=== PATIENT | male | born 1980 | race Caucasian/White ===

== ENCOUNTER → 2019-05-06 | Outpatient (REF) | payer OTHER, MEDICAID ==
[2019-05-06 19:31] LABS: BASO # 0.1 10^3/uL (0.0-0.2); BASO % 0.9 % (0.0-1.0); EOS # 0.2 10^3/uL (0.0-0.5); EOS % 3.5 % (0.0-3.0); HEMATOCRIT 48.7 % (42.0-52.0); HEMOGLOBIN 15.2 g/dl (13.5-17.5); LYMPH % 17.5 % (24.0-44.0); MEAN CORPUSCULAR HEMOGLOBIN 28.7 pg (27.0-33.0); MEAN CORPUSCULAR HGB CONC 31.2 g/dl (32.0-36.5); MEAN CORPUSCULAR VOLUME 91.9 fl (80.0-96.0); MONO # 0.4 10^3/uL (0.0-0.8); NEUTROPHILS # 3.8 10^3/uL (1.5-8.5); NEUTROPHILS % 69.7 % (36.0-66.0); PLATELET COUNT, AUTOMATED 358 10^3/uL (150-450); WHITE BLOOD COUNT 5.5 10^3/uL (4.0-10.0)
[2019-05-06 19:53] LABS: HEMOGLOBIN A1c 7.1 %
[2019-05-06 19:54] LABS: ALBUMIN 3.8 GM/DL (3.2-5.2); ALT/SGPT 40 U/L (12-78); BILIRUBIN,TOTAL 0.3 MG/DL (0.2-1.0); BLOOD UREA NITROGEN 15 MG/DL (7-18); CARBON DIOXIDE LEVEL 30 MEQ/L (21-32); CHLORIDE LEVEL 109 MEQ/L (98-107); CHOLESTEROL LEVEL 184 MG/DL (<200); CHOLESTEROL RISK RATIO 3.016 (<5); COMPLEMENT C3 162 MG/DL (90-180); COMPLEMENT C4 40 MG/DL (10-40); CREATININE FOR GFR 1.25 MG/DL (0.70-1.30); FREE T4 0.95 NG/DL (0.76-1.46); GLOMERULAR FILTRATION RATE > 60.0 (>60); GLUCOSE, FASTING 90 MG/DL (70-100); HDL CHOLESTEROL 61 MG/DL (>40); LDL CHOLESTEROL 64 MG/DL (<100); NON-HDL-C 123 MG/DL; RHEUMATOID FACTOR QUANT < 10.0 IU/ML (<15.0); SODIUM LEVEL 141 MEQ/L (136-145); TOTAL PROTEIN 7.6 GM/DL (6.4-8.2); TRIGLYCERIDES LEVEL 296 MG/DL (<150); URIC ACID 4.4 MG/DL (3.5-7.2)
[2019-05-06 19:55] LABS: TOTAL 25(OH) VITAMIN D 13.4 NG/ML (30.0-100.0)
[2019-05-06 20:16] LABS: ERYTHROCYTE SEDIMENTATION RATE 6 mm/hr (0-15)
== END ==
LOC: M LAB REF 18:09
PROVIDERS: ATTEND Family Medicine
DX: Z13.228 Encounter for screening for other metabolic disorders (principal); M45.7 Ankylosing spondylitis of lumbosacral region; E10.65 Type 1 diabetes mellitus with hyperglycemia

== ENCOUNTER → 2019-06-12 | Outpatient (CLI) | payer OTHER, MEDICAID | LOC: M LAB 12:52 | PROVIDERS: ATTEND Physician Assistant Medical | DX: R19.7 Diarrhea, unspecified (principal) ==

== ENCOUNTER → 2019-06-13 | Outpatient (CLI) | payer OTHER ==
--- NOTE | 2019-06-28 03:14 | ECWPNPC ---
PATIENT NAME: TERESA JEAN : 1980 GENDER: MALE VISIT DATE: 06/13/2019 DISCHARGE DATE: 06/13/19 1219 VISIT LOCKED DATE TIME: PHYSICIAN: LYUBOV TITUS RESOURCE: LYUBOV TITUS REASON FOR APPOINTMENT 1. BACK PAIN HISTORY OF PRESENT ILLNESS PAIN SCREENIN39 Y/O MALE REFERRED BY ,MARAL VELEZ,[facility] FOR CHRONIC LOW BACK PAIN WITH HISTORY OF ANKYLOSING SPONDYLOSIS OF LUMBOSACRAL REGION.RATING PAIN VAS 10/10.HAS WORKED WITH RHEUMATOLOGY AND TRIED MULTIPLE MEDICATIONS WITH EITHER NO IMPROVEMENT OR SIDE EFFECTS.GENERALLY HURTS ALL OVER. PATIENT HAS A COMPLAINT OF ACUTE OR CHRONIC PAIN :YES FALL RISK SCREENING: SCREENING :NO FALLS REPORTED IN THE LAST YEAR CURRENT MEDICATIONS TAKING ASPIRIN ADULT LOW STRENGTH 81 MG TABLET DELAYED RELEASE 1 TABLET ORALLY ONCE A DAY TAKING OMEPRAZOLE 40 MG CAPSULE DELAYED RELEASE 1 CAPSULE 30 MINUTES BEFORE MORNING MEAL ORALLY ONCE A DAY TAKING ATORVASTATIN CALCIUM 20 MG TABLET 1 TABLET ORALLY ONCE A DAY TAKING LISINOPRIL 10 MG TABLET 1 TABLET ORALLY ONCE A DAY TAKING ADMELOG 100 UNIT/ML SOLUTION DIRECTED SUBCUTANEOUS , NOTES: INSULIN PUMP TAKING ESCITALOPRAM OXALATE 5 MG TABLET 1 TABLET ORALLY ONCE A DAY NOT-TAKING BUPROPION HCL ER (SR) 100 MG TABLET EXTENDED RELEASE 12 HOUR 1 TABLET IN THE MORNING ORALLY ONCE A DAY NOT-TAKING AMITRIPTYLINE HCL 25 MG TABLET 1 TABLET AT BEDTIME ORALLY ONCE A DAY NOT-TAKING LANTUS SOLOSTAR 100 UNIT/ML SOLUTION PEN-INJECTOR DIRECTED SUBCUTANEOUS NOT-TAKING HUMALOG 100 UNIT/ML SOLUTION DIRECTED SUBCUTANEOUS NOT-TAKING NOVOLOG FLEXPEN 100 UNIT/ML SOLUTION PEN-INJECTOR DIRECTED SUBCUTANEOUS , NOTES: HAS BACKUP IF PUMP FAILS MEDICATION LIST REVIEWED AND RECONCILED WITH THE PATIENT PAST MEDICAL HISTORY ANXIETY DEPRESSION DIABETES HYPERTENSION HIGH CHOLESTEROL VERTIGO HEARING LOSS DEGENERATIVE DISC DISEASE ANKYLOSING SPONDYLITIS OF LUMBOSACRAL REGION MEMORY LOSS SEIZURES CHILD BIPOLAR ALLERGIES DILANTIN: UNKNOWN SURGICAL HISTORY RIGHT FOOT 1999' FAMILY HISTORY FATHER: ALIVE, DIAGNOSED WITH DIABETES, HYPERTENSION MOTHER: ALIVE, HYPERTENSION 1 SISTER(S) - HEALTHY. 2 SON(S) - HEALTHY. SOCIAL HISTORY GENERAL: TOBACCO USE ARE YOU A:CURRENT SMOKER ARE YOU INTERESTED IN QUITTING?NOT READY TO QUIT QUIT X 3 MONTHS, NOW SMOKING AGAIN HOW MANY CIGARETTES A DAY DO YOU SMOKE?6-10 HOW OFTEN DO YOU SMOKE CIGARETTES?EVERY DAY PATIENT COUNSELED ON THE DANGERS OF TOBACCO USE AND URGED TO QUIT:06/11/2019 VAPORYES DIET: NO CONCENTRATED SWEETS.. LANGUAGE LANGUAGES SPOKEN:CITIZEN OF [place] AND BARBU[place] DOMESTIC VIOLENCE DO YOU FEEL SAFE IN YOUR ENVIRONMENT?YES RECREATIONAL DRUG USE DRUG USE?NO LEARNING BARRIERS / SPECIAL NEEDS CHANGE FROM LAST VISIT?NO BARRIERS TO LEARNING?NO HEARING IMPAIRED?YES PT REPORTS HE WILL BE MAKING AN APPOINTMENT TO GET HEARING AIDES, HAS NONE AT PRESENT VISION IMPAIRED?YES GLASSES COGNITIVELY IMPAIRED?YES PT REPORTS MEMORY LOSS READINESS TO LEARN?YES LEARNING PREFERENCES?YES PREFERS WRITTEN MATERIALS R/T MEMORY LOSS :HANDOUTS LEARNING CAPABILITIES PRESENT?YES EMOTIONAL BARRIERS?NO SPECIAL DEVICES?NO WIND SCIENCE AND PLANNING NEEDED?NO PAIN CLINIC PFS, CLERGY, PUBLIC HEALTH REFERRALS HAS THE PATIENT BEEN EDUCATED REGARDING HIS/HER PLAN OF CARE?YES HAS THE PATIENT BEEN EDUCATED REGARDING PAIN, THE RISK FOR PAIN, THE IMPORTANCE OF EFFECTIVE PAIN MANAGEMENT, AND THE PAIN ASSESSMENT PROCESS?YES LATEX QUESTIONNAIRE LATEX ALLERGY : HAVE YOU EVER DEVELOPED ANY TYPE OF REACTION AFTER HANDLING LATEX PRODUCTS SUCH RUBBER GLOVES, CONDOMS, DIAPHRAGMS, BALLOONS, SOCKS, OR UNDERWEAR?NO LATEX ALLERGY : HAVE YOU EVER DEVELOPED ANY TYPE OF REACTION DURING OR AFTER DENTAL APPOINTMENT, VAGINAL/RECTAL EXAMINATION, SURGICAL PROCEDURE, OR ANY OTHER EXPOSURE?NO LATEX RISK : HAVE YOU EVER HAD ANY DIFFICULTY BREATHING OR HIVES AFTER EATING OR HANDLING ANY FRUITS, OR VEGETABLES; SUCH KIWI, BANANAS, STONE FRUITS, OR CHESTNUTSNO LATEX RISK : DO YOU HAVE A PREVIOUS PERSONAL HISTORY OF MORE THAN NINE SURGERIES, SPINA BIFIDA, OR REPEATED CATHERIZATIONS? 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 NEW PATIENT CONSULT SCREENING 06/11/19 LASREVIEWED WITH PT 06/13/19 1105 BV. HOSPITALIZATION/MAJOR DIAGNOSTIC PROCEDURE DIABETES REVIEW OF SYSTEMS REVIEWED BY: PROVIDER: LYUBOV RAMIREZ . CONSTITUTIONAL: ANY CHANGE IN YOUR MEDICAL CONDITION? NO . CHILLS NO . FEVER NO . INFECTION: DO YOU HAVE NEW INFECTIONS? NO . DO YOU HAVE HISTORY OF MRSA? NO . MUSCULOSKELETAL: ANY NEW PATTERNS OF PAIN OR NUMBNESS? NO . SYTEMIC LUPUS NO . GASTROENTEROLOGY: ANY NEW CHANGE IN BOWEL CONTROL? NO . BARRETTS ESOPHAGUS NO . CIRRHOSIS NO . HEPATITIS NO . LIVER FAILURE NO . ACID REFLUX NO . UNEXPLAINED WEIGHT LOSS NO . GENITOURINARY: ANY NEW CHANGE IN BLADDER CONTROL? NO . IS THERE A CHANCE YOU COULD BE ? NO . HEMATOLOGY/LYMPH: DO YOU TAKE ANY BLOOD THINNERS? (FOR EXAMPLE- COUMADIN, PLAVIX, AGGRENOX, PLATEL, PRADAXA, OR XARELTO) NO . WHEN WAS YOUR LAST DOSE? DATE: TIME: . LOW PLATELET COUNT NO . SICKLE CELL DISEASE NO . VON WILLIEBRANDS NO . FACTOR V LEIDEN NO . THALLASEMIA NO . ANEMIA NO . EASY BRUISING NO . NEUROLOGY: HAVE YOU FALLEN IN THE PAST 12 MONTHS? YES, PT STATES HE HAD A FEW FALLS IN THE PAST YEAR, DUE TO LOSS OF BALANCE. DENIES ANY INJURIES OR ED VISIT DUE TO ANY FALL. . ANY NEW EXTREMITY NUMBNESS OR WEAKNESS? NO . HEAD INJURY NO . DEMENTIA NO . CEREBRAL PALSY NO . MULTIPLE SCLEROSIS NO . DIZZINESS NO . HEADACHE NO . STROKES NO . VERTIGO NO . CARDIOLOGY: DO YOU HAVE A PACEMAKER OR DEFIBRILLATOR? NO . ANGINA NO . HEART ATTACK NO . HEART SURGERY NO . CONGESTIVE HEART FAILURE/FLUID OVERLOAD NO . CHEST PAIN NO . HIGH BLOOD PRESSURE ON MEDICATION(S) . IRREGULAR HEART BEAT NO . RESPIRATORY: HAVE YOU BEEN SICK IN THE PAST WEEK? NO . FEVER NO . FLU LIKE SYMPTOMS? NO . CPAP NO . BYPAP NO . ASTHMA NO . EMPHYSEMA NO . CHRONIC LUNG DISEASES NO . SHORTNESS OF BREATH ON EXERTION NO . COUGH NO . SNORING NO . INTEGUMENTARY: DO YOU HAVE ANY RASHES OR OPEN SORES? NO . ALLERGIC/IMMUNO: ARE YOU ALLERGIC TO IV DYE? NO . ANY NEW ALLERGIES? NO . PSYCHIATRIC: DO YOU HAVE THOUGHTS OF HURTING YOURSELF OR SOMEONE ELSE? NO . ARE YOU ABUSED, NEGLECTED, OR IN AN UNSAFE ENVIRONMENT? NO . ENDOCRINOLOGY: ARE YOU DIABETIC? YES, PT HAS INSULIN PUMP . THYROID DISORDER NO . OTHER: DO YOU NEED ANY PRESCRIPTIONS? NO . IF YES, PLEASE LIST: ____ . ANY NEW PROBLEMS WITH YOUR MEDICATIONS? NO . WHEN DID YOU LAST EAT? ____ . WHEN DID YOU LAST DRINK? ____ . WHAT DID YOU LAST DRINK? ____ . NAME OF PERSON DRIVING YOU HOME? ____ . DO YOU HAVE ANY OTHER QUESTIONS OR CONCERNS NO . VITAL SIGNS WT 285.6 LBS, HT 63 IN, BMI 50.59 INDEX, BP 167/97 MM HG, HR 69 /MIN, RR 18 /MIN, TEMP 96.4 F, OXYGEN SAT % 99%, NA INITIALS AW 1053, REVIEWED BY: BV. EXAMINATION GENERAL EXAMINATION: GENERAL AWAKE,ALERT ,PLEASANT . PSYCH AFFECT NORMAL . LUNGS: LUNG ARCOS ARE CLEAR TO AUSCULTATION BILATERALLY. GOOD MOVEMENT OF AIR . HEART: S1, S2 IN A REGULAR RATE AND RHYTHM. NO SIGNIFICANT MURMURS, RUBS OR GALLOPS NOTED . FOR BILAT. SIJ PALPATION:TENDER OVER BILAT. L4/5-L5/S1 LUMBAR FACETS WITH FACET LOADING.. DIAGNOSTIC TESTS REVIEWED MRI L/S SPINE-12/19/18. ASSESSMENTS DDD (DEGENERATIVE DISC DISEASE), LUMBOSACRAL - M51.37 (PRIMARY) TREATMENT DDD (DEGENERATIVE DISC DISEASE), LUMBOSACRAL START MELOXICAM TABLET, 15 MG, 1 TABLET, ORALLY, ONCE A DAY, 30 DAY(S), 30, REFILLS 2 NOTES: BILAT L4/5-L5/S1 LFB DX. PREVENTIVE MEDICINE PAIN CLINIC TEACHING: MEDICATIONS PT GIVEN WRITTEN AND VERBAL EDUCATION ON MELOXICAM. PT VERBALIZES UNDERSTANDING OF ALL EDUCATION. RASHAUN LOPEZ 06/13/2019 12:22:04 PM > . PROCEDURE TEACHING PT GIVEN WRITTEN AND VERBAL EDUCATION ON DIAGNOSTIC FACET BLOCKS AND RADIOFREQUENCY PROCEDURES. PT ALSO GIVEN WRITTEN AND VERBAL PRE PROCEDURE INSTRUCTIONS. PT VERBALIZES UNDERSTANDING OF ALL EDUCATION AND INSTRUCTIONS. RASHAUN LOPEZ 06/13/2019 12:23:18 PM > . PROCEDURE CODES FA211 ESTABILISHED [facility] CHARGE DISPOSITION & COMMUNICATION FOLLOW UP POST (REASON: BILAT L4/5-L5/S1 LFB DX) ELECTRONICALLY SIGNED BY JAMES ARAGON ON 06/27/2019 AT 03:09 PM EST DISCLAIMER : THIS IS A VISIT SUMMARY EXTRACTED FROM THE [employer] CHART. IT IS NOT A COPY OF THE [email or web address] PROGRESS NOTE. LAWANDA
== END ==
LOC: M PAIN 10:30
PROVIDERS: ATTEND Nurse Practitioner Family
DX: M51.37 Other intervertebral disc degeneration, lumbosacral region (principal)

== ENCOUNTER → 2019-07-14 | Outpatient (REF) | payer OTHER | LOC: M LAB REF 09:22 | PROVIDERS: ATTEND Physician Assistant Medical | DX: R19.7 Diarrhea, unspecified (principal) ==

== ENCOUNTER → 2019-07-15 | Outpatient (CLI) | payer OTHER ==
[~2019-07-15] MED LIST: E-Z-GAS II EFFERVESCENT PACKET (SODIUM BICARB./CITRIC ACID/SIMETHICONE) As Ordered ONE; E-Z-HD 98% w/w 340GM SUSP BTL As Ordered ONE; E-Z-PAQUE 96% w/w SUSP 176GM BTL As Ordered ONE
--- NOTE | 2019-07-15 17:04 | REP ---
Examination Requested: Esophagram Barium Swallow Reason For Exam/Comment: Dysphasia, gastroesophageal reflux disease without esophagitis Esophagram: The procedure was performed BARTOLO Gerard, under the direct supervision of Dr. Sol. The images were reviewed with Dr. Sol. A single PA chest x-ray is submitted as a video game animator film. The superior mediastinal structures are midline. The heart size is within normal limits. The lungs are clear. Liquid barium and gas producing granules were given in the erect position as well as liquid barium in the prone oblique position, in order to perform a double contrast esophagram examination. Oral and pharyngeal stages of the examination were unremarkable. Esophageal transport is efficient and there is no esophagitis, stricture, or mucosal ring noted. There is a hiatal hernia noted. Gastroesophageal reflux was not visualized throughout the course of the exam. Impression: 1. Hiatal hernia. 0.2 minutes of fluoroscopy time was utilized for this procedure. Some fluoroscopic images are performed with last image hold technology. These images require no additional radiation. Reviewed by BARTOLO Grijalva 07/15/2019 01:32 P Electronically Signed by Jenaro Sol MD 07/15/2019 04:55 P
== END ==
LOC: M RAD 08:18
PROVIDERS: ATTEND Physician Assistant Medical
DX: R13.10 Dysphagia, unspecified (principal); K21.9 Gastro-esophageal reflux disease without esophagitis

== ENCOUNTER 2019-08-30 11:12 | Day surgery (SDC) | payer OTHER ==
[~2019-08-30] VITALS: Ht 190.5 cm; Wt 126.9 kg
[~2019-08-30 11:12] MED LIST changes: +ADME100I SC; +ASPI81TA85 PO; +ATOR1TAB21 PO; -E-Z-GAS II EFFERVESCENT PACKET (SODIUM BICARB./CITRIC ACID/SIMETHICONE) As Ordered ONE; -E-Z-HD 98% w/w 340GM SUSP BTL As Ordered ONE; -E-Z-PAQUE 96% w/w SUSP 176GM BTL As Ordered ONE; +LEXA1TAB PO; +LISI10TA4 PO; +NS 1,000 ML IV ONE; +PROT1TAB2 PO
--- NOTE | 2019-08-30 13:38 | ROOR ---
Patient Name: Darien James Procedure Date: 08/30/2019 1:17 PM Date of : 1980 Age: 39 Room: [facility] Gender: Male Note Status: Finalized Procedure: Upper GI endoscopy Indications: Oropharyngeal phase dysphagia, Dysphagia, Heartburn, Diarrhea Providers: Pepe NOEL MD Referring MD: Pepe SERNA MD Requesting Provider: Medicines: Monitored Anesthesia Care Complications: No immediate complications. Procedure: Pre-Anesthesia Assessment: - The physical status of the patient was re-assessed after the procedure. The Endoscope was introduced through the mouth, and advanced to the second part of duodenum. The upper GI endoscopy was accomplished without difficulty. The patient tolerated the procedure well. Findings: A small hiatal hernia was present. The exam was otherwise without abnormality. Biopsies for histology were taken with a cold forceps in the second portion of the duodenum and in the third portion of the duodenum for evaluation of celiac disease. Biopsies were taken with a cold forceps in the upper third of the esophagus, in the middle third of the esophagus and in the lower third of the esophagus for histology. No endoscopic abnormality was evident in the esophagus to explain the patient's complaint of dysphagia. It was decided, however, to proceed with dilation of the entire esophagus. The scope was withdrawn. Dilation was performed with a Ron dilator with mild resistance at 54 Fr. The dilation site was examined following endoscope reinsertion and showed no change. Impression: - Small hiatal hernia. - The examination was otherwise normal. - No endoscopic esophageal abnormality to explain patient's dysphagia. Empiric dilation with 54 F Ron dilator performed. - Biopsies were taken with a cold forceps for rule out celiac disease. - Biopsies were taken with a cold forceps for rule out eosinophilic esophagitis. Recommendation: - Continue present medications. - Follow an antireflux regimen. - Observe patient's clinical course. - Lactose free diet for 1 month. Pepe Noel MD Pepe NOEL MD 08/30/2019 1:37:25 PM Electronically signed by Pepe NOEL MD Number of Addenda: 0 Note Initiated On: 08/30/2019 1:17 PM Estimated Blood Loss: Estimated blood loss: none.
[2019-08-30] MEDS ORDERED: propofoL 500 MG/50 ML VIAL As Ordered ONE (13:57)
[2019-08-30] MEDS ORDERED: LIDOCAINE 2% INJ 100 MG/5 ML SDV (FOR ANES.) As Ordered ONE (13:57)
[2019-08-30] MEDS ORDERED: fentaNYL 100 MCG/2 ML INJECTION (J3010) As Ordered ONE (13:57)
--- NOTE | 2019-08-30 14:03 | ROOR ---
Patient Name: Darien James Procedure Date: 08/30/2019 1:19 PM Date of : 1980 Age: 39 Room: [facility] Gender: Male Note Status: Finalized Procedure: Colonoscopy Indications: Clinically significant diarrhea of unexplained origin, Change in bowel habits Providers: Pepe NOEL MD Referring MD: Pepe SERNA MD Requesting Provider: Medicines: Monitored Anesthesia Care Complications: No immediate complications. Procedure: Pre-Anesthesia Assessment: - The heart rate, respiratory rate, oxygen saturations, blood pressure, adequacy of pulmonary ventilation, and response to care were monitored throughout the procedure. The Colonoscope was introduced through the anus and advanced to the cecum, identified by appendiceal orifice and ileocecal valve. The colonoscopy was performed without difficulty. The patient tolerated the procedure well. The quality of the bowel preparation was adequate and fair. The bowel preparation used was TriLyte and Milk of magnesia via split dose instruction. Findings: The perianal and digital rectal examinations were normal. Two sessile polyps were found in the sigmoid colon and ascending colon. The polyps were 8 to 10 mm in size. These polyps were removed with a cold snare. Resection and retrieval were complete. Mild sigmoid diverticulosis and small internal hemorrhoids. The exam was otherwise without abnormality on direct and retroflexion views. Biopsies for histology were taken with a cold forceps from the entire colon for evaluation of microscopic colitis. Impression: - Preparation of the colon was fair. - Two 8 to 10 mm polyps in the sigmoid colon and in the ascending colon, removed with a cold snare. Resected and retrieved. - Mild sigmoid diverticulosis and small internal hemorrhoids. - The colon examination was otherwise normal on direct and retroflexion views. - Biopsies were taken with a cold forceps from the entire colon for evaluation of microscopic colitis. Recommendation: - Use fiber, for example Citrucel, Fibercon, Konsyl or Metamucil. - Continue present medications. - Lactose free diet for 1 month. - Telephone endoscopist for pathology results in 2 weeks. - Return to referring physician as previously scheduled. Pepe Noel MD Pepe NOEL MD 08/30/2019 2:02:37 PM Electronically signed by Pepe NOEL MD Number of Addenda: 0 Note Initiated On: 08/30/2019 1:19 PM Estimated Blood Loss: Estimated blood loss: none.
[2019-08-30 14:39] VITALS: BP 139/89
== END 2019-08-30 14:41 | disposition home or self-care (01) ==
LOC: M OPP 11:12
PROVIDERS: ATTEND Internal Medicine Gastroenterology
DX: R19.7 Diarrhea, unspecified (principal); R19.5 Other fecal abnormalities; K57.30 Diverticulosis of large intestine without perforation or abscess without bleeding; K64.8 Other hemorrhoids; R13.12 Dysphagia, oropharyngeal phase; R12 Heartburn; K44.9 Diaphragmatic hernia without obstruction or gangrene; D12.2 Benign neoplasm of ascending colon; D12.5 Benign neoplasm of sigmoid colon; Z88.8 Allergy status to other drugs, medicaments and biological substances; Z79.82 Long term (current) use of aspirin; Z79.899 Other long term (current) drug therapy; Z87.891 Personal history of nicotine dependence
CPT/HCPCS: 43239; 43450; 45380; 45385; 88305; J3010

== ENCOUNTER 2019-08-31 11:07 | Observation (INO) | payer OTHER ==
[~2019-08-31] VITALS: Ht 190.5 cm; Wt 128.4 kg
[~2019-08-31 11:07] MED LIST changes: -NS 1,000 ML IV ONE
[2019-08-31] MEDS ORDERED: NS 1,000 ML IV ONE (11:30)
[2019-08-31 11:37] LABS: BASO # 0.1 10^3/uL (0.0-0.2); BASO % 0.8 % (0.0-1.0); EOS # 0.3 10^3/uL (0.0-0.5); EOS % 2.8 % (0.0-3.0); HEMATOCRIT 45.3 % (42.0-52.0); HEMOGLOBIN 14.8 g/dl (13.5-17.5); LYMPH # 1.5 10^3/uL (1.5-5.0); LYMPH % 15.3 % (24.0-44.0); MEAN CORPUSCULAR HEMOGLOBIN 29.4 pg (27.0-33.0); MEAN CORPUSCULAR HGB CONC 32.7 g/dl (32.0-36.5); MEAN CORPUSCULAR VOLUME 90.1 fl (80.0-96.0); MONO # 0.7 10^3/uL (0.0-0.8); MONO % 7.1 % (0.0-5.0); NEUTROPHILS # 7.1 10^3/uL (1.5-8.5); NEUTROPHILS % 73.9 % (36.0-66.0); PLATELET COUNT, AUTOMATED 332 10^3/uL (150-450); RED BLOOD COUNT 5.03 10^6/uL (4.30-6.10); WHITE BLOOD COUNT 9.7 10^3/uL (4.0-10.0)
--- NOTE | 2019-08-31 11:54 | REP ---
Acute abdominal series: Four views. History: Abdomen pain. No comparison imaging. Findings: Upright chest radiograph is unremarkable. There is no evidence of infiltrate or free subdiaphragmatic air. Supine and erect views of the abdomen demonstrate air and stool in a nondistended colon. There is no evidence of mass, organomegaly, or pathologic calcification. Psoas margins and flank stripes are intact. There are phleboliths in the pelvis. Impression: Unremarkable acute abdominal series. Electronically Signed by Biju Ceja MD 08/31/2019 11:46 A
[2019-08-31 12:10] LABS: ALBUMIN 3.6 GM/DL (3.2-5.2); ALT/SGPT 40 U/L (12-78); BILIRUBIN,DIRECT < 0.1 MG/DL (0.0-0.2); BILIRUBIN,TOTAL 0.5 MG/DL (0.2-1.0); LIPASE 42 U/L (73-393); TOTAL PROTEIN 7.6 GM/DL (6.4-8.2)
--- NOTE | 2019-08-31 13:53 | REP ---
CT abdomen and pelvis without IV or oral contrast: History: Rectal bleeding, post recent colonoscopy. Rule out free air. Comparison is made with today's radiographs. Findings: Preliminary digital dental resident radiograph is unremarkable. The lung bases are clear. The liver and the spleen are normal in size and homogeneous in texture. No adrenal lesion is seen. The kidneys are morphologically intact. No retroperitoneal mass or adenopathy is seen. There is no evidence of free intraperitoneal air in the abdomen. Small and large bowel loops are unremarkable in appearance on CT scans through the abdomen and pelvis. There is mild left colonic diverticulosis. Normal appendix is seen. No pelvic mass or adenopathy is observed. The bladder, seminal vesicles and prostate are unremarkable. No abdominal wall defect is seen. Impression: There is no CT evidence of free intraperitoneal air. No evidence of abdominal hematoma. Left colonic diverticulosis. Otherwise negative CT study abdomen and pelvis. Electronically Signed by Biju Ceja MD 08/31/2019 03:13 P
[2019-08-31] MEDS: NS 1,000 ML IV SCH (15:28)
[2019-08-31 15:30] VITALS: BP 166/96
--- NOTE | 2019-08-31 15:54 | HPEPDOC ---
[facility] Medical History & Physical Date of Admission Aug 31, 2019 Date of Service: Aug 31, 2019 Attending Physician: MARY CAMPOVERDE MD History and Physical CHIEF COMPLAINT: Rectal bleeding after colonoscopy w/ polypectomy yesterday HISTORY OF PRESENT ILLNESS: 39 y.o male w/ PMH of DM 1, , HTN, HLD, Bipolar depression, vertigo & chronic diarrhea presents with rectal bleeding. He underwent EGD/Colonoscopy yesterday with removal of multiple polyps. He reports having some BRBPR in PACU, was advised to keep an eye on it and return to the ED if it worsens. He reports >15 episodes of BRBPR since yesterday, each with enough blood "to fill half a cup". He also reports associated lower abdominal pain, no other symptoms, denies fever, nausea or vomiting. Patient has history of internal & external hemorrhoids, has scant amount of blood with every BM. In the ED, he is found to have hemoglobin of 14 & CT abdomen & Pelvis negative for any acute pathology. GI (Dr. Acosta) was consulted by ED, who recommends overnight observation to assess for severity of bleeding. 10 point review of system is negative except for above. PAST MEDICAL HISTORY: 1. DM 2. HTN 3. HLD 4. Bipolar depression 5. Vertigo 6. chronic diarrhea PAST SURGICAL HISTORY: 1. R foot surgery SOCIAL HISTORY: smokes 1/2 PPD denies alcohol use denies drug use FAMILY HISTORY: no FH of heart disease ALLERGIES: Please see below. HOME MEDICATIONS: Please see below. PHYSICAL EXAMINATION: VITAL SIGNS:See below GENERAL APPEARANCE: No distress HEENT: moist mucus membranes CARDIOVASCULAR: S1, S2, no murmurs LUNGS: clear to auscultation ABDOMEN: Soft, mild lower abdominal tenderness, no rebound or guarding, non- distended, +BS EXTREMITIES: ROM intact NEUROLOGICAL: No focal deficits PSYCHIATRIC: calm LABORATORY DATA: See below. IMAGING: CT abdomen & Pelvis negative for free air, no acute pathology visualized MICROBIOLOGY: Please see below. ASSESSMENT: 39 y.o male w/ multiple medical comorbidities who underwent EGD/C olonoscoy yesterday with removal of multiple polyps being admitted for post polypectomy bleeding. PLAN: 1. Post polypectomy bleeding - H/H stable, GI consulted by ED, no intervention for now, will monitor for further bleeding, IV hydration. 2. Diabetes mellitus Type 1 - continue home insulin pump 3. HTN - continue home Lisinopril 4. HLD - continue Atorvastatin 5. Depression - continue Lexapro DVT prophylaxis - SCDs GI Prophylaxis - home PPI Vital Signs Vital Signs Date Time Temp Pulse Resp B/P (MAP) Pulse Ox O2 Delivery O2 Flow Rate FiO2 08/31/19 12:34 99.0 65 14 139/88 (105) 97 08/31/19 11:07 Room Air Laboratory Data Labs 24H Laboratory Tests 2 08/31/19 11:26: Immature Granulocyte % (Auto) 0.1, Neutrophils (%) (Auto) 73.9H, Lymphocytes (%) (Auto) 15.3L, Monocytes (%) (Auto) 7.1H, Eosinophils (%) (Auto) 2.8, Basophils (%) (Auto) 0.8, Neutrophils # (Auto) 7.1, Lymphocytes # (Auto) 1.5, Monocytes # (Auto) 0.7, Eosinophils # (Auto) 0.3, Basophils # (Auto) 0.1, Nucleated Red Blood Cells % (auto) 0.0, Total Bilirubin 0.5, Direct Bilirubin < 0.1, Aspartate Amino Transf (AST/SGOT) 62H, Alanine Aminotransferase (ALT/SGPT) 40, Alkaline Phosphatase 112, Total Protein 7.6, Albumin 3.6, Albumin/Globulin Ratio 0.90L, Lipase 42L 08/31/19 11:34: POC Glucose (Misc Panel) 141H, POC Sodium (Misc Panel) 137, POC Potassium (Misc Panel) 4.8, POC Chloride (Misc Panel) 101, POC Total CO2 (Misc Panel) 28.0H, POC Blood Urea Nitrogen (Misc Panel 15, POC Ionized Calcium (Misc Panel) 4.7, POC Creatinine (Misc Panel) 1.0, POC Hematocrit (Misc Panel) 46.0 CBC/BMP Laboratory Tests 08/31/19 11:26 Home Medications Scheduled Aspirin (Aspir 81) 81 Mg Tablet.dr, 81 MG PO QHS Atorvastatin Calcium (Atorvastatin Calcium) 20 Mg Tablet, 20 MG PO QHS Escitalopram Oxalate (Lexapro) 10 Mg Tablet, 10 MG PO DAILY Lisinopril (Lisinopril) 10 Mg Tablet, 10 MG PO QHS Pantoprazole Sodium (Protonix) 40 Mg Tablet.dr, 40 MG PO BID Miscellaneous Medications Insulin Lispro (Admelog) 100 Unit/1 Ml Vial, 100 UNIT SC USE WITH INSULIN PUMP, PT REFILLS PUMP EVERY 2-3 DAYS Allergies Coded Allergies: phenytoin (Verified Allergy, Intermediate, 08/16/19) A-FIB/CHADSVASC A-FIB History Current/History of A-Fib/PAF?: No MARY CAMPOVERDE MD Aug 31, 2019 15:54
[2019-08-31] MEDS: PANTOPRAZOLE 40MG TAB (PROTONIX) PO SCH (20:11)
[2019-08-31 20:12] VITALS: BP 162/93
[2019-08-31] MEDS ORDERED: ASPIRIN 81 MG ENTERIC TAB PO SCH (21:00)
[2019-08-31] MEDS ORDERED: ATORVASTATIN 20 MG TAB PO SCH (21:00)
[2019-08-31] MEDS ORDERED: lisinopriL 10 MG TAB PO SCH (21:00)
[2019-08-31 22:00] VITALS: BP 162/93
[2019-09-01] MEDS: NS 1,000 ML IV SCH (05:30)
[2019-09-01 06:00] VITALS: BP 127/86
[2019-09-01 06:06] LABS: HEMATOCRIT 40.1 % (42.0-52.0); HEMOGLOBIN 12.9 g/dl (13.5-17.5); MEAN CORPUSCULAR HGB CONC 32.2 g/dl (32.0-36.5); MEAN CORPUSCULAR VOLUME 90.1 fl (80.0-96.0); PLATELET COUNT, AUTOMATED 286 10^3/uL (150-450); RED BLOOD COUNT 4.45 10^6/uL (4.30-6.10); WHITE BLOOD COUNT 5.2 10^3/uL (4.0-10.0)
[2019-09-01 06:24] LABS: ALT/SGPT 26 U/L (12-78); BILIRUBIN,TOTAL 0.4 MG/DL (0.2-1.0); BLOOD UREA NITROGEN 8 MG/DL (7-18); CALCIUM LEVEL 8.3 MG/DL (8.5-10.1); CARBON DIOXIDE LEVEL 26 MEQ/L (21-32); CHLORIDE LEVEL 112 MEQ/L (98-107); CREATININE FOR GFR 0.83 MG/DL (0.70-1.30); GLOMERULAR FILTRATION RATE > 60.0 (>60); GLUCOSE, FASTING 74 MG/DL (70-100); MAGNESIUM LEVEL 1.9 MG/DL (1.8-2.4); POTASSIUM SERUM 3.9 MEQ/L (3.5-5.1); SODIUM LEVEL 142 MEQ/L (136-145); TOTAL PROTEIN 6.3 GM/DL (6.4-8.2)
[2019-09-01] MEDS: PANTOPRAZOLE 40MG TAB (PROTONIX) PO SCH (08:42)
[2019-09-01] MEDS ORDERED: ESCITALOPRAM OXALATE 10 MG TAB (LEXAPRO) PO SCH (09:00)
--- NOTE | 2019-09-01 17:13 | DS.PDOC ---
Discharge Summary General Date of Admission Aug 31, 2019 at 14:42 Date of Discharge 09/01/19 Attending Physician: MARY CAMPOVERDE MD Discharge Summary PROCEDURES PERFORMED DURING STAY: None ADMITTING DIAGNOSES: 1. Post polypectomy bleed DISCHARGE DIAGNOSES: 1. Post polypectomy bleed COMPLICATIONS/CHIEF COMPLAINT: Bipolar Disorder Diabetes Mellitus Hld Htn. HISTORY OF PRESENT ILLNESS: 39 y.o male w/ multiple medical comorbidities was admitted for observation to monitor post polypectomy bleed. Patient has had significant improvement in rectal bleeding since yesterday, reports scant amount of dark blood with BMs overnight. His hemoglobin has remained stable overnight, slight drop likely related to IV hydration over the past 24 hours. Patient is clinically and hemodynamically stable for discharge and outpatient follow up. HOSPITAL COURSE: As above DISCHARGE MEDICATIONS: Please see below. ALLERGIES: Please see below. PHYSICAL EXAMINATION: VITAL SIGNS:See below GENERAL APPEARANCE: No distress HEENT: moist mucus membranes CARDIOVASCULAR: S1, S2, no murmurs LUNGS: clear to auscultation ABDOMEN: Soft, mild lower abdominal tenderness, no rebound or guarding, non-d istended, +BS EXTREMITIES: ROM intact NEUROLOGICAL: No focal deficits PSYCHIATRIC: calm LABORATORY DATA: Please see below. IMAGING: CT abdomen & pelvis negative for acute pathology PROGNOSIS: Fair ACTIVITY: As tolerated DIET: Cardiac DISCHARGE PLAN: f/u with GI & PCP in 1-2 weeks DISPOSITION: 01 Home, Self-Care. DISCHARGE INSTRUCTIONS: 1. As above DISCHARGE CONDITION: Stable TIME SPENT ON DISCHARGE: Greater than 25 minutes. Vital Signs/I&Os Vital Signs Date Time Temp Pulse Resp B/P (MAP) Pulse Ox O2 Delivery O2 Flow Rate FiO2 09/01/19 06:00 96.1 67 16 127/86 (100) 98 Room Air I&O- Last 24 Hours up to 6 AM 09/01/19 06:00 Intake Total 3220 ml Balance 3220 ml Laboratory Data Labs 24H Laboratory Tests 2 09/01/19 05:45: Nucleated Red Blood Cells % (auto) 0.0, Anion Gap 4L, Glomerular Filtration Rate > 60.0, Calcium Level 8.3L, Magnesium Level 1.9, Total Bilirubin 0.4, Aspartate Amino Transf (AST/SGOT) 14, Alanine Aminotransferase (ALT/SGPT) 26, Alkaline Phosphatase 88, Total Protein 6.3L, Albumin 3.0L, Albumin/Globulin Ratio 0.91L CBC/BMP Laboratory Tests 09/01/19 05:45 Discharge Medications Scheduled Aspirin (Aspir 81) 81 Mg Tablet.dr, 81 MG PO QHS, (Reported) Atorvastatin Calcium (Atorvastatin Calcium) 20 Mg Tablet, 20 MG PO QHS, ( Reported) Escitalopram Oxalate (Lexapro) 10 Mg Tablet, 10 MG PO DAILY, (Reported) Lisinopril (Lisinopril) 10 Mg Tablet, 10 MG PO QHS, (Reported) Pantoprazole Sodium (Protonix) 40 Mg Tablet.dr, 40 MG PO BID, (Reported) Miscellaneous Medications Insulin Lispro (Admelog) 100 Unit/1 Ml Vial, 100 UNIT SC, (Reported) USE WITH INSULIN PUMP, PT REFILLS PUMP EVERY 2-3 DAYS Allergies Coded Allergies: phenytoin (Verified Allergy, Intermediate, 08/16/19) MARY CAMPOVERDE MD Sep 01, 2019 17:13
== END 2019-09-01 12:13 | disposition home or self-care (01) ==
LOC: M ED 11:07 → M ED INP 14:42 → ENRESERVDT 15:01 → ENRESERVTM 15:01 → M MSPAV 15:30
PROVIDERS: ADMIT Internal Medicine; ATTEND Internal Medicine
DX: K91.840 Postprocedural hemorrhage of a digestive system organ or structure following a digestive system procedure (principal); E10.9 Type 1 diabetes mellitus without complications; E78.49 Other hyperlipidemia; I10 Essential (primary) hypertension; R19.7 Diarrhea, unspecified; F31.9 Bipolar disorder, unspecified; Z79.82 Long term (current) use of aspirin; Z96.41 Presence of insulin pump (external) (internal); Z79.4 Long term (current) use of insulin; Z88.8 Allergy status to other drugs, medicaments and biological substances; Z79.899 Other long term (current) drug therapy; F17.218 Nicotine dependence, cigarettes, with other nicotine-induced disorders

== ENCOUNTER → 2019-09-10 | Outpatient (CLI) | payer OTHER ==
--- NOTE | 2019-09-20 03:58 | ECWPNPC ---
PATIENT NAME: TERESA JEAN : 1980 GENDER: MALE VISIT DATE: 09/10/2019 DISCHARGE DATE: 09/10/19 1046 VISIT LOCKED DATE TIME: PHYSICIAN: FRAN GILLESPIE MD RESOURCE: FRAN GILLESPIE MD REASON FOR APPOINTMENT 1. BILAT DX LUMBAR FACET BLOCK L4/5, L5/S1. HISTORY OF PRESENT ILLNESS HISTORY OF PRESENT ILLNESS: PAIN THE PATIENT DESCRIBES THE PAIN... 39 YEAR OLD MALE PATIENT WITH A HISTORY OF CHRONIC LOW BACK PAIN. THE PATIENT DESCRIBES THE PAIN ACHING, SHARP, STABBING, AND CONTINUOUS WITH A PAIN SCORE OF 10/10 DEPENDING ON PHYSICAL ACTIVITY. THE PATIENT STATES HE HAS BEEN SUFFERING FROM HIS LOW BACK PAIN FOR SEVERAL YEARS AND THE PAIN IS AFFECTING HIS ABILITY TO PERFORM HIS DAILY ACTIVITIES SUCH BENDING, MOVING HIS BACK, GROCERY SHOPPING, AND CLEANING HIS HOUSE. THE PATIENT SAYS HE HAS TRIED MEDICATION MANAGEMENT IN THE PAST TO HELP WITH HIS PAIN. PATIENT DENIES UNEXPLAINABLE WEIGHT LOSS, FEVER, CHILLS, NEW CHANGES ON HIS URINARY OR BOWEL CONTROL. FALL RISK SCREENING: SCREENING :NO FALLS REPORTED IN THE LAST YEAR CURRENT MEDICATIONS TAKING ASPIRIN ADULT LOW STRENGTH 81 MG TABLET DELAYED RELEASE 1 TABLET ORALLY ONCE A DAY TAKING ATORVASTATIN CALCIUM 20 MG TABLET 1 TABLET ORALLY ONCE A DAY TAKING LISINOPRIL 10 MG TABLET 1 TABLET ORALLY ONCE A DAY TAKING ADMELOG 100 UNIT/ML SOLUTION DIRECTED SUBCUTANEOUS , NOTES: INSULIN PUMP TAKING ESCITALOPRAM OXALATE 5 MG TABLET 1 TABLET ORALLY ONCE A DAY TAKING PANTOPRAZOLE SODIUM 40 MG TABLET DELAYED RELEASE 1 TABLET ORALLY BID NOT-TAKING BUPROPION HCL ER (SR) 100 MG TABLET EXTENDED RELEASE 12 HOUR 1 TABLET IN THE MORNING ORALLY ONCE A DAY NOT-TAKING AMITRIPTYLINE HCL 25 MG TABLET 1 TABLET AT BEDTIME ORALLY ONCE A DAY NOT-TAKING LANTUS SOLOSTAR 100 UNIT/ML SOLUTION PEN-INJECTOR DIRECTED SUBCUTANEOUS NOT-TAKING HUMALOG 100 UNIT/ML SOLUTION DIRECTED SUBCUTANEOUS NOT-TAKING NOVOLOG FLEXPEN 100 UNIT/ML SOLUTION PEN-INJECTOR DIRECTED SUBCUTANEOUS , NOTES: HAS BACKUP IF PUMP FAILS PAST MEDICAL HISTORY ANXIETY DEPRESSION DIABETES HYPERTENSION HIGH CHOLESTEROL VERTIGO HEARING LOSS DEGENERATIVE DISC DISEASE ANKYLOSING SPONDYLITIS OF LUMBOSACRAL REGION MEMORY LOSS SEIZURES CHILD BIPOLAR ALLERGIES DILANTIN: UNKNOWN SURGICAL HISTORY RIGHT FOOT 1999'S FAMILY HISTORY FATHER: ALIVE, DIAGNOSED WITH DIABETES, HYPERTENSION MOTHER: ALIVE, HYPERTENSION 1 SISTER(S) - HEALTHY. 2 SON(S) - HEALTHY. SOCIAL HISTORY GENERAL: TOBACCO USE ARE YOU A:CURRENT SMOKER ARE YOU INTERESTED IN QUITTING?THINKING ABOUT QUITTING QUIT X 3 MONTHS, NOW SMOKING AGAIN PREVIOUS QUIT ATTEMPTS?YES, MORE THAN 6 MONTHS AGO. COUNSELED THE PATIENT ON SMOKING CESSATION, EDUCATION [id number]/10/2020 HOW MANY CIGARETTES A DAY DO YOU SMOKE?6-10 HOW OFTEN DO YOU SMOKE CIGARETTES?EVERY DAY PATIENT COUNSELED ON THE DANGERS OF TOBACCO USE AND URGED TO QUIT:09/10/2019 VAPORYES DIET: NO CONCENTRATED SWEETS.. LANGUAGE LANGUAGES SPOKEN:MALAWIAN DOMESTIC VIOLENCE DO YOU FEEL SAFE IN YOUR ENVIRONMENT?YES RECREATIONAL DRUG USE DRUG USE?NO LEARNING BARRIERS / SPECIAL NEEDS CHANGE FROM LAST VISIT?NO BARRIERS TO LEARNING?NO HEARING IMPAIRED?YES PT REPORTS HE WILL BE MAKING AN APPOINTMENT TO GET HEARING AIDES, HAS NONE AT PRESENT VISION IMPAIRED?YES GLASSES COGNITIVELY IMPAIRED?YES PT REPORTS MEMORY LOSS READINESS TO LEARN?YES LEARNING PREFERENCES?YES PREFERS WRITTEN MATERIALS R/T MEMORY LOSS :HANDOUTS LEARNING CAPABILITIES PRESENT?YES EMOTIONAL BARRIERS?NO SPECIAL DEVICES?NO RECEIVING WORKER NEEDED?NO PAIN CLINIC PFS, CLERGY, PUBLIC HEALTH REFERRALS HAS THE PATIENT BEEN EDUCATED REGARDING HIS/HER PLAN OF CARE?YES HAS THE PATIENT BEEN EDUCATED REGARDING PAIN, THE RISK FOR PAIN, THE IMPORTANCE OF EFFECTIVE PAIN MANAGEMENT, AND THE PAIN ASSESSMENT PROCESS?YES LATEX QUESTIONNAIRE LATEX ALLERGY : HAVE YOU EVER DEVELOPED ANY TYPE OF REACTION AFTER HANDLING LATEX PRODUCTS SUCH RUBBER GLOVES, CONDOMS, DIAPHRAGMS, BALLOONS, SOCKS, OR UNDERWEAR?NO LATEX ALLERGY : HAVE YOU EVER DEVELOPED ANY TYPE OF REACTION DURING OR AFTER DENTAL APPOINTMENT, VAGINAL/RECTAL EXAMINATION, SURGICAL PROCEDURE, OR ANY OTHER EXPOSURE?NO DATE ASKED : 06/11/2019 LATEX RISK : HAVE YOU EVER HAD ANY DIFFICULTY BREATHING OR HIVES AFTER EATING OR HANDLING ANY FRUITS, OR VEGETABLES; SUCH KIWI, BANANAS, STONE FRUITS, OR CHESTNUTSNO LATEX RISK : DO YOU HAVE A PREVIOUS PERSONAL HISTORY OF MORE THAN NINE SURGERIES, SPINA BIFIDA, OR REPEATED CATHERIZATIONS? 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 NEW PATIENT CONSULT SCREENING 06/11/19 LASREVIEWED WITH PT 06/13/19 1105 BV. HOSPITALIZATION/MAJOR DIAGNOSTIC PROCEDURE DIABETES REVIEW OF SYSTEMS REVIEWED BY: PROVIDER: FRAN GILLESPIE MD . CONSTITUTIONAL: ANY CHANGE IN YOUR MEDICAL CONDITION? NO . CHILLS NO . FEVER NO . INFECTION: DO YOU HAVE NEW INFECTIONS? NO . DO YOU HAVE HISTORY OF MRSA? NO . MUSCULOSKELETAL: ANY NEW PATTERNS OF PAIN OR NUMBNESS? NO . GASTROENTEROLOGY: ANY NEW CHANGE IN BOWEL CONTROL? NO . GENITOURINARY: ANY NEW CHANGE IN BLADDER CONTROL? NO . IS THERE A CHANCE YOU COULD BE ? NO . HEMATOLOGY/LYMPH: DO YOU TAKE ANY BLOOD THINNERS? (FOR EXAMPLE- COUMADIN, PLAVIX, AGGRENOX, PLATEL, PRADAXA, OR XARELTO) NO . WHEN WAS YOUR LAST DOSE? DATE: TIME: . NEUROLOGY: HAVE YOU FALLEN IN THE PAST 12 MONTHS? NO . ANY NEW EXTREMITY NUMBNESS OR WEAKNESS? NO . CARDIOLOGY: DO YOU HAVE A PACEMAKER OR DEFIBRILLATOR? NO . RESPIRATORY: HAVE YOU BEEN SICK IN THE PAST WEEK? NO . FEVER NO . FLU LIKE SYMPTOMS? NO . COUGH NO . INTEGUMENTARY: DO YOU HAVE ANY RASHES OR OPEN SORES? NO . ALLERGIC/IMMUNO: ARE YOU ALLERGIC TO IV DYE? NO . ANY NEW ALLERGIES? NO . PSYCHIATRIC: DO YOU HAVE THOUGHTS OF HURTING YOURSELF OR SOMEONE ELSE? NO . ARE YOU ABUSED, NEGLECTED, OR IN AN UNSAFE ENVIRONMENT? NO . ENDOCRINOLOGY: ARE YOU DIABETIC? YES CURRENT SUGAR IS 196 . OTHER: DO YOU NEED ANY PRESCRIPTIONS? NO . IF YES, PLEASE LIST: ____ . ANY NEW PROBLEMS WITH YOUR MEDICATIONS? NO . WHEN DID YOU LAST EAT? ____09-09-19 8 PM . WHEN DID YOU LAST DRINK? ____09-09-19 . WHAT DID YOU LAST DRINK? ____9 PM SOFT DRINK . NAME OF PERSON DRIVING YOU HOME? ____LETICIA AMARO . DO YOU HAVE ANY OTHER QUESTIONS OR CONCERNS NO . VITAL SIGNS WT 283.0 LBS, HT 63 IN, BMI 50.13 INDEX, BP 121/81 MM HG, HR 83 /MIN, RR 18 /MIN, TEMP 98.6 F, OXYGEN SAT % 97%, NA INITIALS AW 0904, REVIEWED BY: KG. EXAMINATION GENERAL EXAMINATION: PATIENT IS ALERT O X 3 AND COOPERATIVE. TENDERNESS OVER THE PARASPINAL MUSCLE GROUP OF THE LOW BACK. PAIN INCREASES OVER THE LUMBAR FACET JOINTS WITH EXTENSION AND LATERAL ROTATION OF THE BACK. MRI OF THE LUMBAR SPINE DONE ON 12/19/2018 SHOWS EDEMA AT INFERIOR ENDPLATE OF L5 AND FACET ARTHROPATHY CHANGES AT L4-L5 AND L5-S1 LEVELS. ASSESSMENTS SPONDYLOSIS WITHOUT MYELOPATHY OR RADICULOPATHY, LUMBAR REGION - M47.816 (PRIMARY) TREATMENT SPONDYLOSIS WITHOUT MYELOPATHY OR RADICULOPATHY, LUMBAR REGION CLINICAL NOTES: WE DISCUSSED SEVERAL ISSUES WITH MR. JEAN'S PAIN MANAGEMENT CASE. THE PATIENT REPORTED HE EXPERIENCED EXCESSIVE BLEEDING AFTER HAVING A COLONOSCOPY, WHICH MAY BE ASSOCIATED WITH TRAUMA, BUT WE AGREED THIS ISSUE NEEDS TO BE CLEARED UP AND WE WILL HOLD OFF ON ANY INTERVENTIONS FOR NOW. THE PATIENT EXPLAINED THAT HE DOES NOT KNOW WHY HE HAS THIS BLEEDING EPISODE. THEREFORE, I WILL REQUEST FOR A COAGULOPATHY CLEARANCE FROM THE PATIENT'S PRIMARY CARE PROVIDER BEFORE PROCEEDING WITH ANY PROCEDURES. THE PATIENT WILL FOLLOW UP WITH THE NURSE PRACTITIONER IN SEVERAL WEEKS. INSTRUCTIONS WERE GIVEN, QUESTIONS WERE ANSWERED, PATIENT REPORTS UNDERSTANDING AND AGREES WITH THE PLAN. I, KELLY PATE, DOCUMENTED THE ABOVE INFORMATION ACTING A SCRIBE FOR DR. GILLSEPIE. I HAVE REVIEWED THE ABOVE DOCUMENT, WRITTEN BY KELLY GOMEZ AND I VERIFY THAT IT IS ACCURATE. . 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 IT IS NOT A COPY OF THE [employer] PROGRESS NOTE. LAWANDA
== END ==
LOC: M PAIN 08:45
PROVIDERS: ATTEND Anesthesiology
DX: M47.816 Spondylosis without myelopathy or radiculopathy, lumbar region (principal)

== ENCOUNTER → 2019-10-01 | Outpatient (CLI) | payer OTHER ==
--- NOTE | 2019-10-01 11:16 | REP ---
CHEST, TWO VIEWS: There is no evidence of acute infiltrate. No pleural effusion is seen. The heart is normal in size. The mediastinal silhouette is unremarkable. The visualized osseous structures are intact. IMPRESSION: No acute pulmonary disease. Electronically Signed by Jenaro Kent MD 10/01/2019 11:24 A
== END ==
LOC: M LAB 10:34
PROVIDERS: ATTEND Internal Medicine Cardiovascular Disease
DX: R06.02 Shortness of breath (principal); I10 Essential (primary) hypertension; J41.0 Simple chronic bronchitis

== ENCOUNTER → 2019-11-07 | Outpatient (CLI) | payer OTHER ==
--- NOTE | 2019-11-08 01:50 | REP ---
Clinical: Bilateral hip pain. Technique: AP and frog lateral views of the right hip. Findings: Bilateral hips are intact and relatively age-appropriate. No significant degenerative changes are appreciated. Joint spaces are symmetric and relatively within normal limits. Surrounding soft tissues are unremarkable. No evidence for acute fracture or dislocation. Impression: Symmetric relatively age-appropriate examination. Electronically Signed by Milind Pimentel MD 11/08/2019 01:42 A
--- NOTE | 2019-11-08 01:53 | REP ---
Clinical: Right knee pain. Technique: AP, lateral, and sunrise views of the right knee. Findings: AP view suggests a very subtle spurring of the lateral tibial spine. The remainder of the examination is age-appropriate. No significant degenerative changes are otherwise noted. No effusion. No acute fracture or dislocation. Impression: Essentially age-appropriate examination. Mild spurring of the lateral tibial spine cannot be excluded and should be correlated with physical examination. Electronically Signed by Milind Pimentel MD 11/08/2019 01:45 A
== END ==
LOC: M RAD 12:23
PROVIDERS: ATTEND Nurse Practitioner Family
DX: M25.559 Pain in unspecified hip (principal); M25.561 Pain in right knee

== ENCOUNTER → 2019-11-26 | Outpatient (CLI) | payer OTHER ==
--- NOTE | 2019-12-04 08:20 | SLEEPCENT ---
DATE OF STUDY: 11/26/2019 ORDERED BY: Dr. Casillas Nocturnal polysomnography was performed for evaluation of sleep physiology in this patient with a history of excessive somnolence and morning headaches who has comorbidities of diabetes and hypertension. 8 hours and 21 minutes of data were reviewed. There were 412.5 minutes of sleep identified. Sleep latency was prolonged at 41.5 minutes. REM latency was prolonged at 371 minutes. Sleep architecture showed poor progression and some fragmentation. There was only 1 REM cycle noted late in the study. Overall sleep efficiency was 83.4%. The electrocardiogram showed a sinus rhythm with some rate variability. Average heart rate 58 beats per minute. Rate ranged 45-90. Electroencephalogram (EEG) showed mild coarsening in background. No focal events. There were normal waveforms for awake and sleep stages. There were 227 respiratory events identified of 10 seconds in duration or greater for an apnea-hypopnea index of 33. The events were primarily obstructive, not exclusive to sleep stage nor body posture. Arousals from respiratory events occurred 3.4 times per hour and oxygen desaturations were seen into the low 80s. There was some activity noted in the limb EMG leads, but limb movement arousals were only 1 per hour. Snoring was noted and other measures of sleep physiology were normal. IMPRESSION: Obstructive sleep apnea syndrome (G47.33). Apnea-hypopnea index 33. RECOMMENDATION: The patient should be encouraged to return to the sleep disorder center for pressure therapy. In the interim, alcohol and sedative avoidance should be practiced and caution exercised during the operation of motor vehicles.
== END ==
LOC: M SLEEP 20:00
PROVIDERS: ATTEND Internal Medicine Pulmonary Disease
DX: G47.33 Obstructive sleep apnea (adult) (pediatric) (principal)

== ENCOUNTER → 2020-03-04 | Outpatient (CLI) | payer OTHER ==
[~2020-03-04] MED LIST changes: -ASPI81TA85 PO; +ASPI81TA86 PO
== END ==
LOC: M PAIN 13:39
PROVIDERS: ATTEND Nurse Practitioner Family
DX: M47.816 Spondylosis without myelopathy or radiculopathy, lumbar region (principal)

== ENCOUNTER → 2020-03-12 | Outpatient (CLI) | payer OTHER ==
[2020-03-12 15:24] LABS: HEMATOCRIT 45.7 % (42.0-52.0); HEMOGLOBIN 14.6 g/dl (13.5-17.5); MEAN CORPUSCULAR HEMOGLOBIN 30.3 pg (27.0-33.0); MEAN CORPUSCULAR HGB CONC 31.9 g/dl (32.0-36.5); MEAN CORPUSCULAR VOLUME 94.8 fl (80.0-96.0); PLATELET COUNT, AUTOMATED 360 10^3/uL (150-450); RED BLOOD COUNT 4.82 10^6/uL (4.30-6.10); WHITE BLOOD COUNT 6.6 10^3/uL (4.0-10.0)
[2020-03-12 15:55] LABS: ALBUMIN 3.5 GM/DL (3.2-5.2); ALT/SGPT 19 U/L (12-78); BILIRUBIN,TOTAL 0.3 MG/DL (0.2-1.0); BLOOD UREA NITROGEN 9 MG/DL (7-18); CARBON DIOXIDE LEVEL 29 MEQ/L (21-32); CHLORIDE LEVEL 104 MEQ/L (98-107); CHOLESTEROL LEVEL 217 MG/DL (<200); CHOLESTEROL RISK RATIO 3.677 (<5); CREATININE FOR GFR 1.05 MG/DL (0.70-1.30); GLOMERULAR FILTRATION RATE > 60.0 (>60); GLUCOSE, FASTING 78 MG/DL (70-100); HDL CHOLESTEROL 59 MG/DL (>40); LDL CHOLESTEROL 130 MG/DL (<100); NON-HDL-C 158 MG/DL; POTASSIUM SERUM 4.4 MEQ/L (3.5-5.1); SODIUM LEVEL 138 MEQ/L (136-145); TOTAL PROTEIN 6.9 GM/DL (6.4-8.2); TRIGLYCERIDES LEVEL 142 MG/DL (<150)
== END ==
LOC: M PLALAB 12:42
PROVIDERS: ATTEND Internal Medicine Endocrinology, Diabetes & Metabolism
DX: E10.649 Type 1 diabetes mellitus with hypoglycemia without coma (principal)

== ENCOUNTER → 2020-04-03 | Outpatient (CLI) | payer OTHER ==
--- NOTE | 2020-04-08 16:13 | ECWPNPC ---
PATIENT NAME: TERESA JEAN : 1980 GENDER: MALE VISIT DATE: 04/03/2020 DISCHARGE DATE: 04/03/20 1428 VISIT LOCKED DATE TIME: PHYSICIAN: LYUBOV TITUS RESOURCE: LYUBOV TITUS REASON FOR APPOINTMENT 1. MRI REVIEW HISTORY OF PRESENT ILLNESS PAIN CENTER INTAKE QUESTIONS: HERE FOR FOLLOW-UP OF CHRONIC LOW BACK PAIN WITH A HISTORY OF ANKYLOSING SPONDYLOSIS. PATIENT IS IN SEVERE PAIN. MRI OF THE LS-SPINE IS REVIEWED WITH PATIENT. SHOWING LUMBAR FACET ARTHROPATHY. DISCUSSED TREATMENT PLAN. GENERAL: -. FALL RISK SCREENING: SCREENING :ONE FALL WITHOUT INJURY IN THE PAST YEAR PATIENT DECLINES INJURY LOST BALANCE LAST WEEK. DID NOT SEEK MEDICAL ATTENTION. PAIN SCREENING: PATIENT HAS A COMPLAINT OF ACUTE OR CHRONIC PAIN :YES LOCATION OF PAIN: LOW BACK, BOTH LEGS INTENSITY OF PAIN (SCALE OF 1 TO 10): 10+ WHAT DOES YOUR PAIN FEEL LIKE:SHARP, ACHING, STABBING DURATION:CONTINOUS, AWAKENS FROM SLEEP PAIN IS INCREASED BY:ACTIVITIES, PROLONGED STANDING PLAN/GOALS/TREATMENT/INTERVENTION/FOLLOW UP:SEE PLAN NURSING NOTE: -. CURRENT MEDICATIONS TAKING NOVOLOG FLEXPEN 100 UNIT/ML SOLUTION PEN-INJECTOR DIRECTED SUBCUTANEOUS , NOTES: HAS BACKUP IF PUMP FAILS TAKING ASPIRIN ADULT LOW STRENGTH 81 MG TABLET DELAYED RELEASE 1 TABLET ORALLY ONCE A DAY TAKING LISINOPRIL 10 MG TABLET 1 TABLET ORALLY ONCE A DAY TAKING ADMELOG 100 UNIT/ML SOLUTION DIRECTED SUBCUTANEOUS , NOTES: INSULIN PUMP TAKING ESCITALOPRAM OXALATE 5 MG TABLET 1 TABLET ORALLY ONCE A DAY TAKING PANTOPRAZOLE SODIUM 40 MG TABLET DELAYED RELEASE 1 TABLET ORALLY BID TAKING LAMOTRIGINE 100 MG TABLET 1 TABLET ORALLY ONCE A DAY TAKING IMMODIUM 1 TAB ORAL NOT-TAKING BUPROPION HCL ER (SR) 100 MG TABLET EXTENDED RELEASE 12 HOUR 1 TABLET IN THE MORNING ORALLY ONCE A DAY NOT-TAKING AMITRIPTYLINE HCL 25 MG TABLET 1 TABLET AT BEDTIME ORALLY ONCE A DAY NOT-TAKING LANTUS SOLOSTAR 100 UNIT/ML SOLUTION PEN-INJECTOR DIRECTED SUBCUTANEOUS NOT-TAKING HUMALOG 100 UNIT/ML SOLUTION DIRECTED SUBCUTANEOUS NOT-TAKING ATORVASTATIN CALCIUM 20 MG TABLET 1 TABLET ORALLY ONCE A DAY MEDICATION LIST REVIEWED AND RECONCILED WITH THE PATIENT PAST MEDICAL HISTORY ANXIETY DEPRESSION DIABETES HYPERTENSION HIGH CHOLESTEROL VERTIGO HEARING LOSS DEGENERATIVE DISC DISEASE ANKYLOSING SPONDYLITIS OF LUMBOSACRAL REGION MEMORY LOSS SEIZURES CHILD BIPOLAR ALLERGIES DILANTIN: UNKNOWN SURGICAL HISTORY RIGHT FOOT 2000'S FAMILY HISTORY FATHER: ALIVE, DIAGNOSED WITH HYPERTENSION, DIABETES MOTHER: ALIVE, HYPERTENSION 1 SISTER(S) - HEALTHY. 2 SON(S) - HEALTHY. SOCIAL HISTORY GENERAL: TOBACCO USE ARE YOU A:CURRENT SMOKER ARE YOU INTERESTED IN QUITTING?THINKING ABOUT QUITTING QUIT X 3 MONTHS, NOW SMOKING AGAIN PREVIOUS QUIT ATTEMPTS?YES, MORE THAN 6 MONTHS AGO. COUNSELED THE PATIENT ON SMOKING CESSATION, EDUCATION [id number]/09/2020 HOW MANY CIGARETTES A DAY DO YOU SMOKE?6-10 HOW OFTEN DO YOU SMOKE CIGARETTES?EVERY DAY PATIENT COUNSELED ON THE DANGERS OF TOBACCO USE AND URGED TO QUIT:04/03/2020 VAPORYES LATEX QUESTIONNAIRE LATEX ALLERGY : HAVE YOU EVER DEVELOPED ANY TYPE OF REACTION AFTER HANDLING LATEX PRODUCTS SUCH RUBBER GLOVES, CONDOMS, DIAPHRAGMS, BALLOONS, SOCKS, OR UNDERWEAR?NO LATEX ALLERGY : HAVE YOU EVER DEVELOPED ANY TYPE OF REACTION DURING OR AFTER DENTAL APPOINTMENT, VAGINAL/RECTAL EXAMINATION, SURGICAL PROCEDURE, OR ANY OTHER EXPOSURE?NO DATE ASKED : 06/11/2019 LATEX RISK : HAVE YOU EVER HAD ANY DIFFICULTY BREATHING OR HIVES AFTER EATING OR HANDLING ANY FRUITS, OR VEGETABLES; SUCH KIWI, BANANAS, STONE FRUITS, OR CHESTNUTSNO LATEX RISK : DO YOU HAVE A PREVIOUS PERSONAL HISTORY OF MORE THAN NINE SURGERIES, SPINA BIFIDA, OR REPEATED CATHERIZATIONS? NO LATEX RISK : ARE YOU FREQUENTLY EXPOSED TO LATEX PRODUCTS IN YOUR OCCUPATION?NO ALCOHOL SCREENING DID YOU HAVE A DRINK CONTAINING ALCOHOL IN THE PAST YEAR?NO POINTS0 INTERPRETATIONNEGATIVE RECREATIONAL DRUG USE DRUG USE?NO CAFFEINE CAFFEINE USE?YES SODA ORIENTAL ORTHODOX [id number] NONE LANGUAGE LANGUAGES SPOKEN:MALAY LEARNING BARRIERS / SPECIAL NEEDS CHANGE FROM LAST VISIT?NO BARRIERS TO LEARNING?NO HEARING IMPAIRED?YES PT REPORTS HE WILL BE MAKING AN APPOINTMENT TO GET HEARING AIDES, HAS NONE AT PRESENT VISION IMPAIRED?YES GLASSES COGNITIVELY IMPAIRED?YES PT REPORTS MEMORY LOSS READINESS TO LEARN?YES LEARNING PREFERENCES?YES PREFERS WRITTEN MATERIALS R/T MEMORY LOSS :HANDOUTS LEARNING CAPABILITIES PRESENT?YES EMOTIONAL BARRIERS?NO SPECIAL DEVICES?NO ASBESTOS BRAKE LINING FINISHER NEEDED?NO DOMESTIC VIOLENCE DO YOU FEEL SAFE IN YOUR ENVIRONMENT?YES 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 DIET: NO CONCENTRATED SWEETS.. PAIN CLINIC PFS, CLERGY, PUBLIC HEALTH REFERRALS HAS THE PATIENT BEEN EDUCATED REGARDING HIS/HER PLAN OF CARE?YES HAS THE PATIENT BEEN EDUCATED REGARDING PAIN, THE RISK FOR PAIN, THE IMPORTANCE OF EFFECTIVE PAIN MANAGEMENT, AND THE PAIN ASSESSMENT PROCESS?YES ADVANCE DIRECTIVE ADVANCE DIRECTIVE DISCUSSED WITH PATIENT:YES NO ADVANCED DIRECTIVES, DECLINES INFORMATION OR ASSISTANCE NEW PATIENT CONSULT SCREENING 06/11/19 LASREVIEWED WITH PT 06/13/19 1105 BV. HOSPITALIZATION/MAJOR DIAGNOSTIC PROCEDURE DIABETES INTERNAL BLEEDING S/P COLONOSCOPY 01/2020 REVIEW OF SYSTEMS REVIEWED BY: PROVIDER: LYUBOV RAMIREZ . CONSTITUTIONAL: ANY CHANGE IN YOUR MEDICAL CONDITION? NO . CHILLS NO . FEVER NO . INFECTION: DO YOU HAVE NEW INFECTIONS? NO . DO YOU HAVE HISTORY OF MRSA? NO . MUSCULOSKELETAL: ANY UNUSUAL JOINT PAIN OR SWELLING NOT MENTIONED NO . SYSTEMIC LUPUS NO . GASTROENTEROLOGY: ANY NEW CHANGE IN BOWEL CONTROL? NO . BARRETTS ESOPHAGUS NO . CIRRHOSIS NO . HEPATITIS NO . HISTORY OF LIVER DISORDER NOT MENTIONED NO . ACID REFLUX NO . UNEXPLAINED WEIGHT LOSS NO . GENITOURINARY: ANY NEW CHANGE IN BLADDER CONTROL? NO . IS THERE A CHANCE YOU COULD BE ? NO . HEMATOLOGY/LYMPH: DO YOU TAKE ANY BLOOD THINNERS? (FOR EXAMPLE- COUMADIN, PLAVIX, AGGRENOX, PLATEL, PRADAXA, OR XARELTO) NO . WHEN WAS YOUR LAST DOSE? DATE: TIME: . LOW PLATELET COUNT NO . SICKLE CELL DISEASE NO . VON WILLIEBRANDS NO . FACTOR V LEIDEN NO . THALLASEMIA NO . ANEMIA NO . EASY BRUISING NO . NEUROLOGY: HAVE YOU FALLEN IN THE PAST 12 MONTHS? YES, PT STATES HE HAD A FEW FALLS IN THE PAST YEAR, DUE TO LOSS OF BALANCE. DENIES ANY INJURIES OR ED VISIT DUE TO ANY FALL. . OTHER NEW NUMBNESS OR PAIN PATTERNS NOT MENTIONED NO . HEAD INJURY NO . DEMENTIA NO . CEREBRAL PALSY NO . MULTIPLE SCLEROSIS NO . DIZZINESS NO . HISTORY OF SEVERE HEADACHES NOT MENTIONED NO . HISTORY OF STROKE OR NEUROLOGICAL DISORDER NOT MENTIONED NO . VERTIGO NO . CARDIOLOGY: DO YOU HAVE A PACEMAKER OR DEFIBRILLATOR? NO . ANGINA NO . HEART ATTACK NO . HEART SURGERY NO . CONGESTIVE HEART FAILURE/FLUID OVERLOAD NOT MENTIONED NO . HISTORY OF CHEST PAIN,IRREGULAR HEART BEAT NOT MENTIONED NO . HIGH BLOOD PRESSURE ON MEDICATION(S) . IRREGULAR HEART BEAT NO . RESPIRATORY: HAVE YOU BEEN SICK IN THE PAST WEEK? NO . FEVER NO . FLU LIKE SYMPTOMS? NO . CPAP NO . BYPAP NO . ASTHMA NO . EMPHYSEMA NO . CHRONIC LUNG DISEASES NO . SHORTNESS OF BREATH ON EXERTION, WHEEZES, UNUSUAL COUGH NOT MENTIONED NO . COUGH NO . SNORING NO . INTEGUMENTARY: DO YOU HAVE ANY RASHES OR OPEN SORES? NO . ALLERGIC/IMMUNO: ARE YOU ALLERGIC TO IV DYE? NO . ANY NEW ALLERGIES? NO . PSYCHIATRIC: DO YOU HAVE THOUGHTS OF HURTING YOURSELF OR SOMEONE ELSE? NO . ARE YOU ABUSED, NEGLECTED, OR IN AN UNSAFE ENVIRONMENT? NO . ENDOCRINOLOGY: ARE YOU DIABETIC? YES, PT HAS INSULIN PUMP . THYROID DISORDER NO . OTHER: DO YOU NEED ANY PRESCRIPTIONS? NO . IF YES, PLEASE LIST: ____ . ANY NEW PROBLEMS WITH YOUR MEDICATIONS? NO . WHEN DID YOU LAST EAT? ____ . WHEN DID YOU LAST DRINK? ____ . WHAT DID YOU LAST DRINK? ____ . NAME OF PERSON DRIVING YOU HOME? ____ . DO YOU HAVE ANY OTHER QUESTIONS OR CONCERNS NO . VITAL SIGNS WT 301.4 LBS, HT 63 IN, BMI 53.38 INDEX, BP 157/93 MM HG, HR 74 /MIN, RR 18 /MIN, TEMP 97.3 F, OXYGEN SAT % 98%, BLOOD GLUCOSE LEVEL 100 1355, SAFE IN ENV? (Y/N) YES, NA INITIALS AW 1352, REVIEWED BY: MT. EXAMINATION GENERAL EXAMINATION: GENERAL AWAKE,ALERT ,PLEASANT . PSYCH AFFECT NORMAL . LUNGS: LUNG ARCOS ARE CLEAR TO AUSCULTATION BILATERALLY. GOOD MOVEMENT OF AIR . HEART: S1, S2 IN A REGULAR RATE AND RHYTHM. NO SIGNIFICANT MURMURS, RUBS OR GALLOPS NOTED . LUMBAR:PALPATION:TENDER OVER BILAT. L4/5-L5/S1 LUMBAR FACETS WITH FACET LOADING.. DIAGNOSTIC TESTS REVIEWED MRI L/S SPINE-12/19/18. ASSESSMENTS SPONDYLOSIS WITHOUT MYELOPATHY OR RADICULOPATHY, LUMBAR REGION - M47.816 (PRIMARY) TREATMENT SPONDYLOSIS WITHOUT MYELOPATHY OR RADICULOPATHY, LUMBAR REGION NOTES: BILATERAL L4-5 L5-S1 LUMBAR FACET BLOCK DIAGNOSTIC. PREVENTIVE MEDICINE PAIN CLINIC TEACHING: THE PATIENT HAS BEEN EDUCATED REGARDING PAIN, THE RISK FOR PAIN, THE IMPORTANCE OF EFFECTIVE PAIN MANAGEMENT, AND THE PAIN ASSESSMENT PROCESS. : DISCUSSED PRE PROCEDURE INSTRUCTIONS WITH PATIENT FOR BILATERAL LUMBAR FACET BLOCK THERAPEUTIC. PATIENT VERBALIZES UNDERSTANDING. DISPOSITION & COMMUNICATION FOLLOW UP POST PROCEDURE (REASON: BILATERAL L4-5 L5-S1 LUMBAR FACET BLOCK DIAGNOSTIC) ELECTRONICALLY SIGNED BY JAMES ARAGON ON 04/08/2020 AT 04:08 PM EDT DISCLAIMER : THIS IS A VISIT SUMMARY EXTRACTED FROM THE [employer] CHART. IT IS NOT A COPY OF THE [employer] PROGRESS NOTE. LAWANDA
== END ==
LOC: M PAIN 13:45
PROVIDERS: ATTEND Nurse Practitioner Family
DX: M47.816 Spondylosis without myelopathy or radiculopathy, lumbar region (principal); G89.29 Other chronic pain; E11.9 Type 2 diabetes mellitus without complications; I10 Essential (primary) hypertension; F17.210 Nicotine dependence, cigarettes, uncomplicated; Z86.59 Personal history of other mental and behavioral disorders; Z88.8 Allergy status to other drugs, medicaments and biological substances; E66.01 Morbid (severe) obesity due to excess calories; Z68.43 Body mass index [BMI] 50.0-59.9, adult; Z79.4 Long term (current) use of insulin; Z79.82 Long term (current) use of aspirin; Z79.899 Other long term (current) drug therapy

== ENCOUNTER → 2020-04-15 | Outpatient (CLI) | payer OTHER | LOC: M LABSMTC 12:09 | PROVIDERS: ATTEND Anesthesiology | DX: Z01.812 Encounter for preprocedural laboratory examination (principal); Z20.828 Contact with and (suspected) exposure to other viral communicable diseases | CPT/HCPCS: C9803; U0003 ==

== ENCOUNTER → 2020-04-20 | Outpatient (CLI) | payer OTHER ==
[~2020-04-20] MED LIST changes: +BUPIVACAINE HCL 0.25% 30ML VIAL As Ordered ONE; +ISOVUE-M 300 61% 15ML VIAL As Ordered ONE; +LIDOCAINE 1% SDV 30ML VIAL As Ordered ONE
--- NOTE | 2020-04-20 11:12 | REP ---
INDICATION: BILATERAL DIAGNOTIC #1 LUMBAR FACET. Pain COMPARISON: None. TECHNIQUE: For C-arm views lower lumbar spine performed. FINDINGS: [place] are seen along the lower lumbar facet joints bilaterally. A small amount of contrast is injected. IMPRESSION: 49 seconds fluoroscopy time utilized. <Electronically signed by Jenaro Kent > 04/20/20 1104
--- NOTE | 2020-04-25 02:02 | ECWPNPC ---
PATIENT NAME: TERESA JEAN : 1980 GENDER: MALE VISIT DATE: 04/20/2020 DISCHARGE DATE: 04/20/20 1050 VISIT LOCKED DATE TIME: PHYSICIAN: FRAN GILLESPIE MD RESOURCE: FRAN GILLESPIE MD REASON FOR APPOINTMENT 1. BILATERAL L4-5 L5-S1 LUMBAR FACET BLOCK DIAGNOSTIC HISTORY OF PRESENT ILLNESS GENERAL: -. FALL RISK SCREENING: SCREENING :TWO OR MORE FALLS WITHOUT INJURY IN THE PAST YEAR 2 WEEKS AGO, LOST BALANCE AND KNEES GAVE OUT. PAIN SCREENING: PATIENT HAS A COMPLAINT OF ACUTE OR CHRONIC PAIN :YES INTENSITY OF PAIN (SCALE OF 1 TO 10): 10+ WHAT DOES YOUR PAIN FEEL LIKE:STABBING, ACHING PULSATING DURATION:CONTINOUS, AWAKENS FROM SLEEP PAIN IS INCREASED BY:ACTIVITIES, PROLONGED STANDING PLAN/GOALS/TREATMENT/INTERVENTION/FOLLOW UP:SEE PLAN NURSING NOTE: -. PAIN CENTER INTAKE QUESTIONS: DO YOU HAVE A HISTORY OF MRSA? :NO DO YOU TAKE A BLOOD THINNERS? :NO DO YOU HAVE ANY BLEEDING DISORDERS? :NO ANY NEW NUMBNESS OR WEAKNESS IN YOUR LEGS OR ARMS? :NO ANY PACEMAKER,DEFIBRILLATOR, OR DORSAL COLUMN STIMULATOR? :NO DO YOU HAVE ANY RASHES OR OPEN SORES? :NO ARE YOU ALLERGIC TO IV DYE? :NO ARE YOU DIABETIC? :NO ANY NEW PROBLEMS WITH YOUR MEDICATIONS? :NO HAVE YOU RECEIVED A VACCINE IN THE PAST 30 DAYS? :NO DO YOU PLAN TO RECEIVE A VACCINE IN THE NEXT 21 DAYS? :NO PATIENT EDUCATED ON WAITING THREE WEEKS POST PROCEDURE TO OBTAIN ANY VACCINATIONS. DO YOU TAKE ANY IMMUNOSUPPRESSIVE MEDICATIONS? :NO ANY HISTORY OF SEIZURES? :YES AT 15-16 YO ANY HISTORY OF CARDIAC ISSUES OR EVENTS? :NO DO YOU HAVE SLEEP APNEA? :YES DO YOU WEAR A CPAP?YES ANY RECENT HEAD INJURY? :NO DO YOU HAVE ANY NEW INFECTIONS? :NO IS THERE A CHANCE YOU COULD BE ? :NO ARE YOU BREAST FEEDING? :NO WHEN DID YOU LAST EAT? : - WHEN DID YOU LAST DRINK? : - WHAT DID YOU LAST DRINK? : - NAME OF PERSON DRIVING YOU HOME? : MOTHER (LETICIA) DO YOU HAVE ANY OTHER QUESTIONS OR CONCERNS? : - CURRENT MEDICATIONS TAKING ASPIRIN ADULT LOW STRENGTH 81 MG TABLET DELAYED RELEASE 1 TABLET ORALLY ONCE A DAY, NOTES: 04-19-202099 TAKING LISINOPRIL 10 MG TABLET 1 TABLET ORALLY ONCE A DAY, NOTES: 04-19-20 2100 TAKING ADMELOG 100 UNIT/ML SOLUTION DIRECTED SUBCUTANEOUS , NOTES: INSULIN PUMP TAKING ESCITALOPRAM OXALATE 5 MG TABLET 1 TABLET ORALLY ONCE A DAY, NOTES: 04-20-20 07 TAKING PANTOPRAZOLE SODIUM 40 MG TABLET DELAYED RELEASE 1 TABLET ORALLY BID, NOTES: 04-21-20 08 TAKING LAMOTRIGINE 100 MG TABLET 1 TABLET ORALLY ONCE A DAY, NOTES: 04-20-20 08 TAKING IMMODIUM 1 TAB ORAL , NOTES: 04-19-20 07 NOT-TAKING BUPROPION HCL ER (SR) 100 MG TABLET EXTENDED RELEASE 12 HOUR 1 TABLET IN THE MORNING ORALLY ONCE A DAY NOT-TAKING AMITRIPTYLINE HCL 25 MG TABLET 1 TABLET AT BEDTIME ORALLY ONCE A DAY NOT-TAKING LANTUS SOLOSTAR 100 UNIT/ML SOLUTION PEN-INJECTOR DIRECTED SUBCUTANEOUS NOT-TAKING HUMALOG 100 UNIT/ML SOLUTION DIRECTED SUBCUTANEOUS NOT-TAKING ATORVASTATIN CALCIUM 20 MG TABLET 1 TABLET ORALLY ONCE A DAY NOT-TAKING NOVOLOG FLEXPEN 100 UNIT/ML SOLUTION PEN-INJECTOR DIRECTED SUBCUTANEOUS , NOTES: HAS BACKUP IF PUMP FAILS MEDICATION LIST REVIEWED AND RECONCILED WITH THE PATIENT PAST MEDICAL HISTORY ANXIETY DEPRESSION DIABETES HYPERTENSION HIGH CHOLESTEROL VERTIGO HEARING LOSS DEGENERATIVE DISC DISEASE ANKYLOSING SPONDYLITIS OF LUMBOSACRAL REGION MEMORY LOSS SEIZURES CHILD BIPOLAR ALLERGIES DILANTIN: UNKNOWN SURGICAL HISTORY RIGHT FOOT FAMILY HISTORY FATHER: ALIVE, DIAGNOSED WITH HYPERTENSION, DIABETES MOTHER: ALIVE, HYPERTENSION 1 SISTER(S) - HEALTHY. 2 SON(S) - HEALTHY. SOCIAL HISTORY GENERAL: TOBACCO USE ARE YOU A:CURRENT SMOKER ARE YOU INTERESTED IN QUITTING?THINKING ABOUT QUITTING QUIT X 3 MONTHS, NOW SMOKING AGAIN PREVIOUS QUIT ATTEMPTS?YES, MORE THAN 6 MONTHS AGO. COUNSELED THE PATIENT ON SMOKING CESSATION, EDUCATION ICMBPERN59/22/2020 HOW MANY CIGARETTES A DAY DO YOU SMOKE?6-10 HOW OFTEN DO YOU SMOKE CIGARETTES?EVERY DAY PATIENT COUNSELED ON THE DANGERS OF TOBACCO USE AND URGED TO QUIT:04/20/2020 [facility] LATEX QUESTIONNAIRE LATEX ALLERGY : HAVE YOU EVER DEVELOPED ANY TYPE OF REACTION AFTER HANDLING LATEX PRODUCTS SUCH RUBBER GLOVES, CONDOMS, DIAPHRAGMS, BALLOONS, SOCKS, OR UNDERWEAR?NO LATEX ALLERGY : HAVE YOU EVER DEVELOPED ANY TYPE OF REACTION DURING OR AFTER DENTAL APPOINTMENT, VAGINAL/RECTAL EXAMINATION, SURGICAL PROCEDURE, OR ANY OTHER EXPOSURE?NO LATEX RISK : HAVE YOU EVER HAD ANY DIFFICULTY BREATHING OR HIVES AFTER EATING OR HANDLING ANY FRUITS, OR VEGETABLES; SUCH KIWI, BANANAS, STONE FRUITS, OR CHESTNUTSNO LATEX RISK : DO YOU HAVE A PREVIOUS PERSONAL HISTORY OF MORE THAN NINE SURGERIES, SPINA BIFIDA, OR REPEATED CATHERIZATIONS? NO LATEX RISK : ARE YOU FREQUENTLY EXPOSED TO LATEX PRODUCTS IN YOUR OCCUPATION?NO DATE ASKED : 06/11/2019 ALCOHOL SCREENING DID YOU HAVE A DRINK CONTAINING ALCOHOL IN THE PAST YEAR?NO POINTS0 INTERPRETATIONNEGATIVE RECREATIONAL DRUG USE DRUG USE?NO CAFFEINE CAFFEINE USE?YES SODA ORTHODOX [id number] NONE LANGUAGE LANGUAGES SPOKEN:LITHUANIAN LEARNING BARRIERS / SPECIAL NEEDS CHANGE FROM LAST VISIT?NO BARRIERS TO LEARNING?NO HEARING IMPAIRED?YES PT REPORTS HE WILL BE MAKING AN APPOINTMENT TO GET HEARING AIDES, HAS NONE AT PRESENT VISION IMPAIRED?YES GLASSES COGNITIVELY IMPAIRED?YES PT REPORTS MEMORY LOSS READINESS TO LEARN?YES LEARNING PREFERENCES?YES PREFERS WRITTEN MATERIALS R/T MEMORY LOSS :HANDOUTS LEARNING CAPABILITIES PRESENT?YES EMOTIONAL BARRIERS?NO SPECIAL DEVICES?NO OYSTER SHIPPER NEEDED?NO DOMESTIC VIOLENCE DO YOU FEEL SAFE IN YOUR ENVIRONMENT?YES 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 DIET: NO CONCENTRATED SWEETS.. PAIN CLINIC PFS, CLERGY, PUBLIC HEALTH REFERRALS HAS THE PATIENT BEEN EDUCATED REGARDING HIS/HER PLAN OF CARE?YES HAS THE PATIENT BEEN EDUCATED REGARDING PAIN, THE RISK FOR PAIN, THE IMPORTANCE OF EFFECTIVE PAIN MANAGEMENT, AND THE PAIN ASSESSMENT PROCESS?YES ADVANCE DIRECTIVE ADVANCE DIRECTIVE DISCUSSED WITH PATIENT:YES NO ADVANCED DIRECTIVES, DECLINES INFORMATION OR ASSISTANCE NEW PATIENT CONSULT SCREENING 06/11/19 LASREVIEWED WITH PT 06/13/19 1105 BV. HOSPITALIZATION/MAJOR DIAGNOSTIC PROCEDURE DIABETES INTERNAL BLEEDING S/P COLONOSCOPY 01/2020 VITAL SIGNS WT 300.8 LBS, HT 63 IN, BMI 53.28 INDEX, BP 154/91 MM HG, HR 77 /MIN, RR 18 /MIN, TEMP 97.8 F, OXYGEN SAT % 97%, BLOOD GLUCOSE LEVEL 269, SAFE IN ENV? (Y/N) YES, NA INITIALS TX 09:06, REVIEWED BY: VERONIQUE. EXAMINATION GENERAL EXAMINATION: THE PATIENT IS ALERT, ORIENTED TIMES THREE AND COOPERATIVE. HEART SHOWS REGULAR RHYTHM, NO MURMURS AND NO GALLOPS. LUNGS ARE CLEAR TO AUSCULTATION. ASSESSMENTS SPONDYLOSIS WITHOUT MYELOPATHY OR RADICULOPATHY, LUMBAR REGION - M47.816 (PRIMARY), RISK: (NULL) SPONDYLOSIS WITHOUT MYELOPATHY OR RADICULOPATHY, LUMBOSACRAL REGION - M47.817 TREATMENT SPONDYLOSIS WITHOUT MYELOPATHY OR RADICULOPATHY, LUMBAR REGION LAB: FINGERSTICK BLOOD SUGAR (ORDERED FOR 04/20/2020) [facility] FAC[facility] BLOCK (PAIN)[phone] SPONDYLOSIS WITHOUT MYELOPATHY OR RADICULOPATHY, LUMBOSACRAL REGION [facility] FACET BLOCK (PAIN)[phone] OTHERS CLINICAL NOTES: PAT COMPLETED 04/16/20 1629. PROCEDURES PAIN NURSING RECORD PRE-PROCEDURE IV SITE NONE NEEDED, PRE-PROCEDURE ORAL MEDICATIONS NONE NEEDED PROCEDURE IN ROOM 1000, PHYSICIAN IN ROOM 1012, START 1019, FINISH 1031, PHYSICIAN OUT OF ROOM 1034, OUT OF ROOM 1037, STEROID N/A, O2 N/A, ECG NORMAL SINUS, PATIENT SHIELDED YES, SAFETY STRAP YES, PREP CHLOROPREP LAQUITA RN, IV INFUSED N/A, DRESSING TEGADERM LOC: 1. ALERT, ORIENTED, CHOCO SON 04/20/2020 10:10:44 AM > RESP: 1. REGULAR, NO DYSPNEA, CHOCO SON 04/20/2020 10:10:51 AM > COLOR: 1. PINK SKIN: 1. WARM, DRY, CHOCO SON 04/20/2020 10:10:59 AM > POSITION: 1. PRONE, CHOCO SON 04/20/2020 10:11:04 AM > VITALS: 169/90 98% 18 70 HR @1000 /108 98% 18 73 HR @@1015 168/78 98% 18 70HR @[address] GILLESPIE REQUESTED 7 " NEEDLES 48 SECONDS TOTAL FLUORO TIME DISCHARGE: POST PAIN 10, DRESSING SITE DRY AND INTACT, IV N/A, GAIT STEADY, TEACHING COMPLETED, PATIENT ACKNOWLEDGES UNDERSTANDING YES ENT OVER THE IMPORTANCE OF THE PAIN DIARY WITH THE PT AND TO RATE EVERY 30 MINUTES AND TO DO ACTIVITIES TODAY, PATIENT DISCHARGED AT 1050 PN LUMBAR FACET BLOCK DIAGNOSTIC PRE PROCEDURE DIAGNOSIS LUMBAR SPONDYLOSIS, LUMBOSACRAL SPONDYLOSIS POST PROCEDURE DIAGNOSIS LUMBAR SPONDYLOSIS, LUMBOSACRAL SPONDYLOSIS PROCEDURE BILATERAL L4-L5 AND BILATERAL L5-S1 FACET BLOCK DIAGNOSTIC NUMBER [address] FRAN GILLESPIE PRINT WASHER NONE ANESTHESIA LOCAL PRE PROCEDURE NOTE THE PATIENT WITH HISTORY OF CHRONIC LOW BACK PAIN. I EVALUATED THE PATIENT AND REVIEWED THE CHART. I WENT OVER THE RISKS, ALTERNATIVES, AND BENEFITS ASSOCIATED WITH THIS PROCEDURE. THE PATIENT WOULD LIKE TO PROCEED AND GAVE CONSENT TO PERFORM THE PROCEDURE. AGREED WITH THE PATIENT, WE ARE DOING THIS PROCEDURE TO DETERMINE IF THE PATIENT IS A CANDIDATE FOR A RADIOFREQUENCY ABLATION OF THE FACETS JOINTS. THE PATIENT DENIES UNEXPLAINABLE WEIGHT LOSS, FEVER, CHILLS, OR NEW CHANGES IN URINARY OR BOWEL CONTROL. THE PATIENT IS COVID-19 NEGATIVE DESCRIPTION OF PROCEDURE THE PATIENT WAS BROUGHT TO THE PROCEDURE ROOM AND PLACED IN THE PRONE POSITION. THE LUMBOSACRAL AREA WAS CLEANED WITH CHLORAPREP SOLUTION AND DRAPED ASEPTICALLY. THE PROCEDURE WAS DONE UNDER STERILE CONDITIONS. A TIMEOUT WAS PERFORMED WHERE LATERALITY AND THE SITE OF THE PROCEDURE WERE CHECKED AND CONFIRMED WITH EVERYONE IN THE ROOM. UNDER FLUOROSCOPIC GUIDANCE, TARGETS WERE SELECTED AT THE INTERSECTION OF THE RIGHT AND LEFT TRANSVERSE PROCESS OF L4, L5 AND ALA OF S1 WITH ITS RESPECTIVE SUPERIOR ARTICULAR PROCESS WITH A TARGET OF THE MEDIAN BRANCHES OF L3, L4 AND THE DORSAL RAMI OF L5. I CONFIRMED AGAIN WITH EVERYONE IN THE ROOM THE LATERALITY OF THE TARGET AT 1019 ON THE LEFT AND 1027 ON THE RIGHT. LIDOCAINE WAS USED TO NUMB THE SKIN AND THE SUBCUTANEOUS TISSUE BELOW IT. SPINAL NEEDLE, 22-GAUGE, WAS ADVANCED UNDER FLUOROSCOPIC GUIDANCE AND FOLLOWING PATIENT FEEDBACK UNTIL THE TARGETS WERE REACHED. POSITION OF THE NEEDLES WAS VERIFIED WITH AP AND LATERAL VIEWS. AFTER PROPER POSITION OF THE NEEDLES WAS ACHIEVED, ISOVUE-M DYE 30%, 0.1 ML, WAS INJECTED AT EACH SITE SHOWING ADEQUATE SPREAD OF THE DYE. THEN, A SOLUTION OF 0.5 ML OF BUPIVACAINE 0.25% WAS INJECTED AT EACH SITE. THE MEDICATIONS WERE VERIFIED WITH THE NURSE. THERE WAS NO EVIDENCE OF BLOOD, PARESTHESIA OR CEREBROSPINAL FLUID DURING THE PROCEDURE. THE PATIENT WAS SENT TO THE RECOVERY ROOM. THE PATIENT WAS MOVING THE EXTREMITIES AND DOING WELL. THERE WERE NO COMPLICATIONS DURING THE PROCEDURE. ESTIMATED BLOOD LOSS WAS LESS THAN 5 ML. FLUOROSCOPY TIME WAS 48 SECONDS POST PROCEDURE NOTE I NEEDED TO USE THE 7 INCH NEEDLE FOR THIS PROCEDURE INSTEAD OF THE 5 INCH. THE PATIENT MAY BE A CANDIDATE FOR A LUMBAR EPIDURAL STEROID INJECTION IN THE FUTURE. THE PATIENT WILL DOCUMENT THE PAIN LEVEL AND RESPONSE TO THIS PROCEDURE PER PAIN DIARY. THE PATIENT WILL BE SEEN IN A FOLLOW UP IN THE NEXT FEW WEEKS. FURTHER DETERMINATION FOR THE PATIENT'S CASE WILL BE DONE AT THE NEXT VISIT. INSTRUCTIONS WERE GIVEN, QUESTIONS WERE ANSWERED, AND THE PATIENT EXPRESSED UNDERSTANDING AND AGREED WITH THE PLAN. I, DORY ATKINSON, DOCUMENTED THE ABOVE INFORMATION ACTING A SCRIBE FOR DR. GILLESPIE. I HAVE REVIEWED THE ABOVE DOCUMENT, WRITTEN BY DORY ATKINSON, LACE MENDER, AND I VERIFY THAT IT IS ACCURATE PROCEDURE CODES 91919 INJ PARAVERT F JNT L/S 1 LEV, MODIFIERS: 50 [id number] INJ PARAVERT F JNT L/S 2 LEV, MODIFIERS: 50 DISPOSITION & COMMUNICATION FOLLOW UP FOLLOW UP WITH CLOTH BEAMER (REASON: POST BILATERAL L4-L5, L5-S1 DIAGNOSTIC #1 FACET BLCOK) ELECTRONICALLY SIGNED BY FRAN GILLESPIE MD, ON 04/24/2020 AT 04:29 PM EDT DISCLAIMER : THIS IS A VISIT SUMMARY EXTRACTED FROM THE [employer] CHART. IT IS NOT A COPY OF THE [employer] PROGRESS NOTE. MTDDayna
== END ==
LOC: M PAIN 09:00
PROVIDERS: ATTEND Anesthesiology
DX: M47.816 Spondylosis without myelopathy or radiculopathy, lumbar region (principal); M47.817 Spondylosis without myelopathy or radiculopathy, lumbosacral region; F41.9 Anxiety disorder, unspecified; F31.9 Bipolar disorder, unspecified; E11.9 Type 2 diabetes mellitus without complications; I10 Essential (primary) hypertension; E78.00 Pure hypercholesterolemia, unspecified; R42 Dizziness and giddiness; F17.210 Nicotine dependence, cigarettes, uncomplicated; Z88.8 Allergy status to other drugs, medicaments and biological substances; Z79.82 Long term (current) use of aspirin; Z79.899 Other long term (current) drug therapy
CPT/HCPCS: 64493; 64494; Q9967

== ENCOUNTER → 2020-05-18 | Outpatient (CLI) | payer OTHER ==
[~2020-05-18] MED LIST changes: -BUPIVACAINE HCL 0.25% 30ML VIAL As Ordered ONE; -ISOVUE-M 300 61% 15ML VIAL As Ordered ONE; -LIDOCAINE 1% SDV 30ML VIAL As Ordered ONE
== END ==
LOC: M PAIN 14:15
PROVIDERS: ATTEND Nurse Practitioner Family
DX: Z53.29 Procedure and treatment not carried out because of patient's decision for other reasons (principal)

== ENCOUNTER → 2020-05-28 | Outpatient (CLI) | payer OTHER ==
--- NOTE | 2020-06-02 01:00 | ECWPNPC ---
PATIENT NAME: TERESA JEAN : 1980 GENDER: MALE VISIT DATE: 05/28/2020 DISCHARGE DATE: 05/28/20 1455 VISIT LOCKED DATE TIME: PHYSICIAN: LYUBOV TITUS RESOURCE: LYUBOV TITUS REASON FOR APPOINTMENT 1. POST BILATERAL L4-L5, L5-S1 DIAGNOSTIC #1 FACET BLCOK HISTORY OF PRESENT ILLNESS GENERAL: HERE FOR POST PROCEDURE FOLLOW-UP. HAD BILATERAL L4-5, L5-S1 LUMBAR FACET BLOCK DIAGNOSTIC #1 ON 04/20/2020. HOURLY PAIN DIARY IS REVIEWED. THIS IS SHOWING GREATER THAN 80% REDUCTION IN PAIN FOR APPROXIMATELY 6 HOURS POSTPROCEDURE THEN PAIN RETURNED TO BASELINE. COMPLAINING OF CENTRAL LOW BACK PAIN TODAY. PAIN IS SEVERE. RATING PAIN LEVEL A 10 OVER 10 VAS. APPEARS COMFORTABLE. -. FALL RISK SCREENING: SCREENING :TWO OR MORE FALLS WITHOUT INJURY IN THE PAST YEAR PAIN SCREENING: PATIENT HAS A COMPLAINT OF ACUTE OR CHRONIC PAIN :YES LOCATION OF PAIN:LOW BACK, RIGHT HIP INTENSITY OF PAIN (SCALE OF 1 TO 10):10 WHAT DOES YOUR PAIN FEEL LIKE:ACHING, BURNING, CONTINOUS, STABBING, SHARP DURATION:CONTINOUS PAIN IS INCREASED BY: "DOESNT REALLY MATTER" NURSING NOTE: -. CURRENT MEDICATIONS TAKING ASPIRIN ADULT LOW STRENGTH 81 MG TABLET DELAYED RELEASE 1 TABLET ORALLY ONCE A DAY TAKING LISINOPRIL 10 MG TABLET 1 TABLET ORALLY ONCE A DAY TAKING ADMELOG 100 UNIT/ML SOLUTION DIRECTED SUBCUTANEOUS , NOTES: INSULIN PUMP TAKING ESCITALOPRAM OXALATE 5 MG TABLET 1 TABLET ORALLY ONCE A DAY TAKING PANTOPRAZOLE SODIUM 40 MG TABLET DELAYED RELEASE 1 TABLET ORALLY BID TAKING LAMOTRIGINE 100 MG TABLET 1 TABLET ORALLY ONCE A DAY TAKING IMMODIUM 1 TAB ORAL NOT-TAKING BUPROPION HCL ER (SR) 100 MG TABLET EXTENDED RELEASE 12 HOUR 1 TABLET IN THE MORNING ORALLY ONCE A DAY NOT-TAKING AMITRIPTYLINE HCL 25 MG TABLET 1 TABLET AT BEDTIME ORALLY ONCE A DAY NOT-TAKING LANTUS SOLOSTAR 100 UNIT/ML SOLUTION PEN-INJECTOR DIRECTED SUBCUTANEOUS NOT-TAKING HUMALOG 100 UNIT/ML SOLUTION DIRECTED SUBCUTANEOUS NOT-TAKING ATORVASTATIN CALCIUM 20 MG TABLET 1 TABLET ORALLY ONCE A DAY NOT-TAKING NOVOLOG FLEXPEN 100 UNIT/ML SOLUTION PEN-INJECTOR DIRECTED SUBCUTANEOUS , NOTES: HAS BACKUP IF PUMP FAILS MEDICATION LIST REVIEWED AND RECONCILED WITH THE PATIENT PAST MEDICAL HISTORY ANXIETY DEPRESSION DIABETES HYPERTENSION HIGH CHOLESTEROL VERTIGO HEARING LOSS DEGENERATIVE DISC DISEASE ANKYLOSING SPONDYLITIS OF LUMBOSACRAL REGION MEMORY LOSS SEIZURES CHILD BIPOLAR ALLERGIES DILANTIN: UNKNOWN SURGICAL HISTORY RIGHT FOOT 1999' FAMILY HISTORY FATHER: ALIVE, DIAGNOSED WITH HYPERTENSION, DIABETES MOTHER: ALIVE, HYPERTENSION 1 SISTER(S) - HEALTHY. 2 SON(S) - HEALTHY. SOCIAL HISTORY GENERAL: TOBACCO USE ARE YOU A:CURRENT SMOKER ARE YOU INTERESTED IN QUITTING?THINKING ABOUT QUITTING "SOON I HOPE" PREVIOUS QUIT ATTEMPTS?YES, MORE THAN 6 MONTHS AGO. COUNSELED THE PATIENT ON SMOKING CESSATION, EDUCATION [id number]/22/2020 HOW MANY CIGARETTES A DAY DO YOU SMOKE?6-10 HOW OFTEN DO YOU SMOKE CIGARETTES?EVERY DAY PATIENT COUNSELED ON THE DANGERS OF TOBACCO USE AND URGED TO QUIT:05/28/2020 [facility] LATEX QUESTIONNAIRE LATEX ALLERGY : HAVE YOU EVER DEVELOPED ANY TYPE OF REACTION AFTER HANDLING LATEX PRODUCTS SUCH RUBBER GLOVES, CONDOMS, DIAPHRAGMS, BALLOONS, SOCKS, OR UNDERWEAR?NO LATEX ALLERGY : HAVE YOU EVER DEVELOPED ANY TYPE OF REACTION DURING OR AFTER DENTAL APPOINTMENT, VAGINAL/RECTAL EXAMINATION, SURGICAL PROCEDURE, OR ANY OTHER EXPOSURE?NO DATE ASKED : 06/11/2019 LATEX RISK : HAVE YOU EVER HAD ANY DIFFICULTY BREATHING OR HIVES AFTER EATING OR HANDLING ANY FRUITS, OR VEGETABLES; SUCH KIWI, BANANAS, STONE FRUITS, OR CHESTNUTSNO LATEX RISK : DO YOU HAVE A PREVIOUS PERSONAL HISTORY OF MORE THAN NINE SURGERIES, SPINA BIFIDA, OR REPEATED CATHERIZATIONS? NO LATEX RISK : ARE YOU FREQUENTLY EXPOSED TO LATEX PRODUCTS IN YOUR OCCUPATION?NO ALCOHOL SCREENING DID YOU HAVE A DRINK CONTAINING ALCOHOL IN THE PAST YEAR?NO POINTS0 INTERPRETATIONNEGATIVE RECREATIONAL DRUG USE DRUG USE?NO CAFFEINE CAFFEINE USE?YES SODA [employer] [id number] NONE LANGUAGE LANGUAGES SPOKEN:ALBANIAN LEARNING BARRIERS / SPECIAL NEEDS CHANGE FROM LAST VISIT?NO BARRIERS TO LEARNING?NO HEARING IMPAIRED?YES PT REPORTS HE WILL BE MAKING AN APPOINTMENT TO GET HEARING AIDES, HAS NONE AT PRESENT VISION IMPAIRED?YES GLASSES COGNITIVELY IMPAIRED?YES PT REPORTS MEMORY LOSS READINESS TO LEARN?YES LEARNING PREFERENCES?YES PREFERS WRITTEN MATERIALS R/T MEMORY LOSS :HANDOUTS LEARNING CAPABILITIES PRESENT?YES EMOTIONAL BARRIERS?NO SPECIAL DEVICES?NO BETTING AGENCY MANAGER NEEDED?NO DOMESTIC VIOLENCE DO YOU FEEL SAFE IN YOUR ENVIRONMENT?YES 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 DIET: NO CONCENTRATED SWEETS.. PAIN CLINIC PFS, CLERGY, PUBLIC HEALTH REFERRALS HAS THE PATIENT BEEN EDUCATED REGARDING HIS/HER PLAN OF CARE?YES HAS THE PATIENT BEEN EDUCATED REGARDING PAIN, THE RISK FOR PAIN, THE IMPORTANCE OF EFFECTIVE PAIN MANAGEMENT, AND THE PAIN ASSESSMENT PROCESS?YES ADVANCE DIRECTIVE ADVANCE DIRECTIVE DISCUSSED WITH PATIENT:YES NO ADVANCED DIRECTIVES, DECLINES INFORMATION OR ASSISTANCE NEW PATIENT CONSULT SCREENING 06/11/19 LASREVIEWED WITH PT 06/13/19 1105 BV. HOSPITALIZATION/MAJOR DIAGNOSTIC PROCEDURE DIABETES INTERNAL BLEEDING S/P COLONOSCOPY 01/2020 REVIEW OF SYSTEMS CONSTITUTIONAL: ANY RECENT FEVER NO . CHILLS NO . WEIGHT CHANGE OF UNKNOWN REASONS NO . GASTROENTEROLOGY: NEW UNEXPLAINABLE CHANGES IN BOWEL CONTROL NO . CONSTIPATION NO . GENITOURINARY: ANY NEW CHANGE IN BLADDER CONTROL? NO . NEUROLOGY: NEW ONSET DIZZINESS OR NEUROLOGICAL CHANGES NOT MENTIONED NO . NEW NUMBNESS OR PAIN PATTERNS NOT MENTIONED AND PERTINENT TO TODAY'S VISIT NO . CARDIOLOGY: NEW CHEST PRESSURE NO . NEW CHEST PAIN NO . RESPIRATORY: UNEXPLAINABLE COUGH NO . NEW SHORTNESS OF BREATH NO . VITAL SIGNS WT 313.8 LBS, HT 63 IN, BMI 55.58 INDEX, BP 158/79 MM HG, HR 72 /MIN, RR 18 /MIN, TEMP 96.9 F, OXYGEN SAT % 98%, SAFE IN ENV? (Y/N) YES, NA INITIALS SC 14:13, REVIEWED BY: KG. EXAMINATION GENERAL EXAMINATION: GENERAL AWAKE,ALERT ,PLEASANT . PSYCH AFFECT NORMAL . LUNGS: LUNG ARCOS ARE CLEAR TO AUSCULTATION BILATERALLY. GOOD MOVEMENT OF AIR . HEART: S1, S2 IN A REGULAR RATE AND RHYTHM. NO SIGNIFICANT MURMURS, RUBS OR GALLOPS NOTED . LUMBAR:PALPATION:TENDER OVER BILAT. L4/5-L5/S1 LUMBAR FACETS R>L WITH FACET LOADING.. DIAGNOSTIC TESTS REVIEWED MRI L/S SPINE-12/19/18. ASSESSMENTS OTHER CHRONIC PAIN - G89.29 (PRIMARY) SPONDYLOSIS WITHOUT MYELOPATHY OR RADICULOPATHY, LUMBOSACRAL REGION - M47.817 TREATMENT OTHER CHRONIC PAIN PAIN PROCEDURE LOGDATE OF [id number]:BILATERAL FACET BLOCK DIAGNOSTIC #1 L4-5 [id number] OF PRE SEDATENARESULT:GREATER THAN 80% REDUCTION IN PAIN FOR 6 HOURS POSTPROCEDURE THEN PAIN RETURNED TO BASELINE NOTES: RIGHT L4-5, L5-S1 DIAGNOSTIC LUMBAR FACET BLOCK #2. PROCEDURE CODES [id number] ESTABILISHED PATIENT [facility] CHARGE DISPOSITION & COMMUNICATION FOLLOW UP POSTPROCEDURE (REASON: RIGHT L4-5, L5-S1 DIAGNOSTIC LUMBAR FACET BLOCK #2) ELECTRONICALLY SIGNED BY JAMES ARAGON ON 06/01/2020 AT 09:06 AM EST DISCLAIMER : THIS IS A VISIT SUMMARY EXTRACTED FROM THE [employer] CHART. IT IS NOT A COPY OF THE [employer] PROGRESS NOTE. LAWANDA
== END ==
LOC: M PAIN 14:15
PROVIDERS: ATTEND Nurse Practitioner Family
DX: G89.29 Other chronic pain (principal); M47.817 Spondylosis without myelopathy or radiculopathy, lumbosacral region; F41.9 Anxiety disorder, unspecified; F32.9 Major depressive disorder, single episode, unspecified; E11.9 Type 2 diabetes mellitus without complications; I10 Essential (primary) hypertension; E78.00 Pure hypercholesterolemia, unspecified; R42 Dizziness and giddiness; F17.210 Nicotine dependence, cigarettes, uncomplicated; Z79.82 Long term (current) use of aspirin; Z79.899 Other long term (current) drug therapy; Z88.8 Allergy status to other drugs, medicaments and biological substances

== ENCOUNTER → 2020-07-04 | Outpatient (CLI) | payer MEDICARE, OTHER ==
[~2020-07-04] MED LIST changes: +LISI10TA22 PO; -LISI10TA4 PO
== END ==
LOC: M LABSMTC 10:32
PROVIDERS: ATTEND Anesthesiology
DX: Z20.822 Contact with and (suspected) exposure to COVID-19 (principal)